=== PATIENT | female | born 1955 | race Caucasian/White ===

== ENCOUNTER → 2017-12-16 11:53 | Outpatient (CLI) | payer OTHER, SELFPAY ==
--- NOTE | 2017-12-16 11:53 | DT_ITS ---
This patient was seen during an EMR downtime December 15, 2017 - December 22, 2017. This patient may have a combination of paper and electronic documentation or all paper documentation. All documentation is viewable within the e-chart portion of [facility] for each patient visit.
[2017-12-22 17:12] LABS: ALB/GLOB Ratio 1.1 RATIO (0.9-2.4); AST(SGOT) 21 U/L (15-37); Albumin, Serum 4.2 g/dL (3.2-5.0); BUN 15 mg/dL (7-18); BUN/Creat Ratio 24.2 RATIO (10-20); Calcium,Total 9.3 mg/dL (8.5-10.1); Creatinine, Serum 0.62 mg/dL (0.55-1.02); EST Glomerular Filtration Rate 104 mL/min (>60); Est Glom Filt Rate - Afr Amer 126 mL/min (>60); Globulin 3.7 g/dL (2.2-4.2); Glucose 81 mg/dL (74-106); Protein, Total 7.9 g/dL (6.4-8.2)
[2017-12-22 17:13] LABS: Alanine Aminotransfer ALT/SGPT 24 U/L (13-56); Alkaline Phosphatase 79 U/L (45-117); Anion Gap 7 (5-15); Chloride 100 mmol/L (98-107); Potassium 3.6 mmol/L (3.5-5.1); Sodium Level 137 mmol/L (136-145)
== END ==
PROVIDERS: Family Provider Family Medicine; PCP Family Medicine; Visit Provider Internal Medicine Endocrinology, Diabetes & Metabolism
DX: M81.0 Age-related osteoporosis without current pathological fracture (principal); E11.9 Type 2 diabetes mellitus without complications
CPT/HCPCS: 36415; 80053; 82523

== ENCOUNTER → 2017-12-29 11:54 | Outpatient (CLI) | payer OTHER, SELFPAY ==
--- NOTE | 2017-12-29 11:58 | BI_ITS ---
MAMMOGRAPHY - UNILATERAL SCREENING: RIGHT BREAST REASON FOR EXAM: Female, 62 years old. Routine annual screening examination (unilateral). PERTINENT HISTORY: Personal history of breast cancer. Prior left mastectomy. TECHNIQUE: Digital unilateral breast kendall (3D mammographic acquisition) in the CC and MLO projections. 2-D mediolateral oblique (MLO) and craniocaudad (CC) views of both breasts were obtained. CAD: Full Field Digital Mammography with Computer Added Detection was performed. COMPARISON: Comparison is made with prior examination dated December 25, 2016 and December 25, 2015. FINDINGS: Breast Composition: The breasts are heterogeneously dense, which may obscure small masses. There are no dominant masses or suspicious calcifications. No other significant abnormalities are identified. There has been no significant change since the prior study. BI/UNILAT RT SCRN W/CAD IMPRESSION: Stable unilateral screening mammogram. Yearly follow-up mammogram recommended. (A) ASSESSMENT CATEGORY: BIRADS Category 1: Negative. A letter regarding these results will be sent to the patient by the facility within 30 days. Approximately 10% of breast cancers are not detected by mammography. A normal mammogram should not delay biopsy of a clinically suspicious abnormality. [id number] Electronically Signed: Elian Ronquillo MD at 11:41 EDT Tel [phone], Service support ,
== END ==
PROVIDERS: Family Provider Family Medicine; PCP Family Medicine; Visit Provider Obstetrics & Gynecology
DX: Z12.31 Encounter for screening mammogram for malignant neoplasm of breast (principal); Z85.3 Personal history of malignant neoplasm of breast; Z90.12 Acquired absence of left breast and nipple
CPT/HCPCS: 77061; 77067; G0279

== ENCOUNTER → 2018-05-15 18:25 | Outpatient (CLI) | payer OTHER, SELFPAY | PROVIDERS: Family Provider Family Medicine; PCP Family Medicine; Visit Provider Obstetrics & Gynecology | DX: N89.8 Other specified noninflammatory disorders of vagina (principal) | CPT/HCPCS: 87070; 87205 ==

== ENCOUNTER → 2018-06-23 07:18 | Outpatient (CLI) | payer OTHER, SELFPAY ==
[2018-05-15 10:09] VITALS: BMI 25.0
[2018-06-23 10:50] LABS: Absolute Lymphocyte Count 1.34 X10^3/ul (0.83-4.51); Absolute Neutrophil Count 3.1 X10^3/uL (2.0-7.7); Basophil# 0.04 X10^3/uL; Basophil% 0.8 % (0-1); Eosinophil# 0.17 X10^3/uL; Eosinophils% 3.3 % (0-5); Hematocrit 45.7 % (37-47); Hemoglobin 14.9 g/dl (12.0-15.0); Lymphocyte # 1.34 X10^3/ul (4.0); Lymphocyte % 25.9 % (19-41); Mean Corp Hgb Conc 32.6 g/gl (32-36); Mean Corpuscular Hgb 29.2 pg (27.0-32.0); Mean Corpuscular Volume 89.6 fL (81-99); Monocyte# 0.48 X10^3/uL; Monocyte% 9.3 % (0-10); Neutrophil # 3.14 X10^3/uL (2.7-7.7); Neutrophil % 60.5 % (47-70); POSITIVE COUNT NO; POSITIVE DIFFERENTIAL NO; POSITIVE MORPHOLOGY NO; Platelet Count 221 K/mm3 (150-450); RBC Distribution Width CV 12.9 % (11.6-14.6); RBC Distribution Width SD 41.8 fl (35.1-43.9); White Blood Count 5.2 K/mm3 (4.4-11.0)
[2018-06-23 11:05] LABS: AST(SGOT) 18 U/L (15-37); Alanine Aminotransfer ALT/SGPT 27 U/L (13-56); Albumin, Serum 3.8 g/dL (3.2-5.0); Alkaline Phosphatase 76 U/L (45-117); Anion Gap 7 (5-15); BUN 16 mg/dL (7-18); BUN/Creat Ratio 22.5 RATIO (10-20); Calcium,Total 8.6 mg/dL (8.5-10.1); Chloride 104 mmol/L (98-107); Cholesterol 213 mg/dL (200); Creatinine, Serum 0.71 mg/dL (0.55-1.02); EST Glomerular Filtration Rate 88 mL/min (>60); Est Glom Filt Rate - Afr Amer 107 mL/min (>60); Globulin 3.7 g/dL (2.2-4.2); Glucose 121 mg/dL (74-106); High Density Lipoprotein 65 mg/dL; Potassium 3.7 mmol/L (3.5-5.1); Protein, Total 7.5 g/dL (6.4-8.2); Sodium Level 140 mmol/L (136-145); Triglycerides 143 mg/dL; Very Low Density Lipoprotein 29 mg/dL (5-40)
[2018-06-23 11:12] LABS: Microalbumin,Random Urine 12.7 mg/L (NO RANGE EST.); Microalbumin:Creatinine Ratio 10.2 mg/g CRE (<30 mg/g CRE)
--- OUTSIDE RECORDS SUMMARY | 2018-08-09 05:35 | XMS RPT_ITS ---
:1955 Author Organization OHIP Care Team Providers Name Role Phone Samara Odonnell Attending Unavailable Samara Odonnell Referring Unavailable Scott Franco Primary Care Unavailable Terri Weinstein Attending Unavailable Scott Franco Primary Care Unavailable Terri Weinstein Attending Unavailable Scott Franco Referring Unavailable Terri Weinstein Attending Unavailable Scott Franco Primary Care Unavailable Samara Odonnell Attending Unavailable Samara Odonnell Referring Unavailable Scott Franco Primary Care Unavailable PROBLEMS PROBLEMS DATE TYPE CONDITION / CODE ATTENDING STATUS SOURCE 06/23/2018 Unknown E11.9 - Type 2 Korableva, Active Renetta diabetes mellitus [facility] without complications Hospital / E11.9(ICD-10) Repository 06/23/2018 Unknown E78.2 - Mixed Korableva, Active Renetta hyperlipidemia / [facility] E78.2(ICD-10) Hospital Repository 06/23/2018 Unknown D72.818 - Other Korableva, Active Renetta decreased white blood [facility] cell count / Hospital D72.818(ICD-10) Repository 05/15/2018 Unknown Z01.419 - Encounter Corinna, Active Fallon for gynecological [facility] examination (general) Hospital (routine) without Repository abnormal findings / Z01.419(ICD-10) 05/15/2018 Unknown N89.8 - Other Marcanthony, Active Renetta specified [facility] noninflammatory Hospital disorders of vagina / Repository N89.8(ICD-10) 01/07/2018 Unknown M81.0 - Age-related Korableva, Active Fallon osteoporosis without [facility] current pathological Hospital fracture / Repository M81.0(ICD-10) PROCEDURES PROCEDURES No Procedure Records FoundRESULTS RESULTS CBC W/DIFF, AUTOMATED Collected: 06/23/2018 Status: F Source: [place] 7:21 AM [facility] REPOSITORY TYPE CODE TESTS RESULT OUT OF RANGE REFERENCE UNITS LAB L100.1000 4.4-11.0 K/mm3 Normal WBC 5.2 LAB L100.1200 4.2-5.4 M/mm3 Normal RBC 5.10 LAB L100.1300 12.0-15.0 g/dl Normal HGB 14.9 LAB L100.1400 37-47 % Normal HCT 45.7 LAB L100.1500 81-99 fL Normal MCV 89.6 LAB L100.1600 27.0-32.0 pg Normal MCH 29.2 LAB L100.1700 32-36 g/gl Normal MCHC 32.6 LAB L100.1810 11.6-14.6 % Normal RDW CV 12.9 LAB L100.1820 35.1-43.9 fl Normal RDW SD 41.8 LAB L100.1900 150-450 K/mm3 Normal PLT 221 LAB L100.2000 6.2-12.0 fl Normal MPV 12.0 LAB L100.2100 47-70 % Normal NEUT% 60.5 LAB L100.2200 19-41 % Normal LY% 25.9 LAB L100.2300 0-10 % Normal MONO% 9.3 LAB L100.2400 0-5 % Normal EO% 3.3 LAB L100.2500 0-1 % Normal BASO% 0.8 LAB L100.2550 0.0-0.9 % Normal IM GRAN % 0.200 Result Comment: IG% - Immature Granulocytes (promyelocytes, myelocytes and metamyelocytes) > 1% indicates that a LEFT SHIFT is Present. LAB L100.2620 2.0-7.7 X10 3/uL Normal Absolute Neut 3.1 LAB L100.2720 0.83-4.51 X10 3/ul Normal Absolute Lymph 1.34 Performed By: #### L100.0100 #### [facility] [address] [place], [address] COMPREHENSIVE METABOLIC Collected: 06/23/2018 Status: F Source: [facility] 7:21 AM [facility] REPOSITORY TYPE CODE TESTS RESULT OUT OF RANGE REFERENCE UNITS LAB L501.0100 74-106 mg/dL High GLU 121 Result Comment: Fasting Glucose result from 100 to 125 mg/dL suggests IMPAIRED HOMEOSTASIS per A.D.A. criteria. Please note revised GLUCOSE reference range effective 2017. LAB L501.1000 7-18 mg/dL Normal BUN 16 LAB L501.1100 0.55-1.02 mg/dL Normal CREAT,SERUM 0.71 Result Comment: The validity of the calculated GFR AND GFRAA in patients over 70 years has not been determined. Clinical correlation is essential. LAB L501.1110 >60 mL/min Normal EST GFR 88 Result Comment: Non- GFR Calc LAB L501.1115 >60 mL/min Normal EST GFR - AA 107 Result Comment: GFR Calc LAB L501.1300 10-20 RATIO High BUN/CRE 22.5 LAB L501.1500 6.4-8.2 g/dL T Normal PROT 7.5 LAB L501.1800 3.2-5.0 g/dL Normal ALB 3.8 LAB L501.1950 2.2-4.2 g/dL Normal GLOB 3.7 LAB L501.2000 0.9-2.4 RATIO Normal A/G 1.0 LAB L501.2200 8.5-10.1 mg/dL CA Normal 8.6 LAB L501.4100 15-37 U/L Normal AST 18 LAB L501.4305 45-117 U/L Normal ALK P 76 LAB L501.4405 13-56 U/L Normal ALT 27 LAB L501.4600 0.20-1.00 mg/dL T Normal BILI 0.50 LAB L501.5300 136-145 mmol/L NA Normal 140 LAB L501.5600 3.5-5.1 mmol/L K Normal 3.7 LAB L501.5900 98-107 mmol/L CL Normal 104 LAB L501.6100 21.0-32.0 mmol/L Normal CO2 29.0 LAB L501.6200 5-15 Normal GAP 7 Performed By: #### L500.4050, L500.4100 #### [facility] [address] [place], [place], [address] LIPID PROFILE Collected: 06/23/2018 Status: F Source: [place] 7:21 AM [facility] REPOSITORY TYPE CODE TESTS RESULT OUT OF RANGE REFERENCE UNITS LAB L501.4900 200 mg/dL High CHOL 213 Result Comment: <200 mg/dL Desirable 200-240 mg/dL Borderline >240 mg/dL High Risk LAB L501.5000 mg/dL Normal TRIG 143 Result Comment: The drugs N-Acetylcysteine and Metamizole may falsely depress this assay. Serum Triglycerides Reference Interval Normal <150 mg/dL Borderline high 150 - 199 mg/dL High 200 - 499 mg/dL Very High > or = 500 mg/dL LAB L501.6400 mg/dL Normal HDL 65 Result Comment: The drugs N-Acetylcysteine and Metamizole may falsely depress this assay. Reference Range HDL <40 mg/dL Low HDL Cholesterol HDL >or= 60 mg/dL High HDL Cholesterol LAB L501.6500 0-130 mg/dL Normal LDL 119 LAB L501.6600 5-40 mg/dL Normal VLDL 29 Performed By: #### L500.4050, L500.4100 #### [facility] [address] [place], [place], [address] MICROALB:CREAT Collected: 06/23/2018 Status: F Source: [place] RATIO,RANDOM UR 7:21 AM [facility] REPOSITORY TYPE CODE TESTS RESULT OUT OF RANGE REFERENCE UNITS LAB L501.1200 NO RANGE EST. mg/dL Normal UR CREAT 124.00 LAB L502.0500 NO RANGE EST. mg/L Normal 12.7 MICROALBUMIN ,UR LAB L502.0600 <30 mg/g CRE mg/g CRE Normal 10.2 MALB:CREAT Performed By: #### L502.0250 #### [facility] [address] [place], [address] Observed: 05/15/2018 Status: F Source: [place] CULTURE, GENITAL 6:25 PM [facility] COMPREHENSIVE REPOSITORY Reason for Exam: vaginal discharge Gram Stain Score = 4 Interpretation: 0-3 Normal, 4-6 Intermediate, 7-10 Positive BV Gram Stain No Gram positive rods 1+ White Blood Cells No Gram negative diplococci No Yeast Like Organisms Gent Cult Comp Normal vaginal zev isolated. No yeast, Gardnerella, Neisseria or beta-hemolytic Streptococcus isolated. Performed By: #### M100.1600 #### [facility] [address] [place], [place], [address] [employer]ARDEN [employer]LE[employer] MECH[employer]IC OFFICE VISIT Observed: 05/15/2018 Status: F Source: [place] REPORT 11:11 AM [facility] REPOSITORY [facility] [address] [place] [address] OFFICE VISIT Date of Service: 05/15/18 MR#: [id number] Acct: [id number] Name: RADHA JEROME Rep #: [id number] : 1955 Provider: Terri Weinstein MD Age/Sex: 63/F Location: 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 Is patient in pain?: No Allergies No Known Allergies Allergy (Verified 05/15/18 10:10) Medications Hydrochlorothiazide [Hctz] 25 mg PO DAILY 12/06/16 [History Confirmed 05/15/18] Potassium Chloride [Klor-Con M20] 20 meq PO DAILY 12/06/16 [History Confirmed 05/15/18] Cholecalciferol (Vitamin D3) [Vitamin D3] 2,000 unit PO DAILY 01/02/17 [History Confirmed 05/15/18] Ibandronate Sodium [Boniva] 150 mg PO Q30D 01/02/17 [History Confirmed 05/15/18] Is last menstrual period known: No Patient : No : No PFSH Medical History Hypercalcemia (Acute) Hypokalemia (Acute) Osteoporosis (Chronic) Diabetes (Acute) Surgical History H/O tubal ligation (Resolved) S/P appendectomy (Resolved) S/P left mastectomy (Resolved) Family History Mother Diabetes CVA (cerebral vascular accident) Father Diabetes Myocardial infarction Sister Diabetes Pancreatic cancer Social History Smoking Status: Former smoker alcohol intake: never substance use type: does not use caffeine: Yes what type of physical activity do you participate in: walking frequency: 3-4 times per week seatbelt use: always do you feel safe at home: Yes additional social history: - 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 DateName GA/Weeks Outcome Route Bth WeighInfant GeLabor LgtAnesthesiDel LocatProvider FOB t n h a n HPI ANNUAL EXAM: Details: RADHA JEROME is a 63 year old who presents for annual exam. Last PAP: 2016 normal History of abnormal PAP: no Last mammogram: here History of abnormal mammogram: breast cancer 1996 Colon cancer screening: up to date Other preventative health care screenings: pcp rayne Female Reproductive History Questions: Sexually active: No ROS Const Constitutional: Reports as per HPI; denies poor appetite, fatigue, increased appetite, weight gain or weight loss Cardio Card: Denies chest pain Resp Resp: Denies dyspnea or cough GI GI: Reports as per HPI; denies bloating, abdominal pain, constipation, vomiting or nausea : Reports as per HPI, other and vaginal discharge (clear discharge); denies blood in urine, vaginal odor, vaginal itching, vaginal dryness, urinary urgency, urinary incontinence, urinary frequency, pelvic pain, painful urination, difficulty urinating, prolapse symptoms or nipple discharge Skin Skin/Breast: Denies breast pain, breast skin changes, nipple discharge, breast lump or changing lesions Exam Const General: cooperative, healthy appearing, comfortable, no acute distress, well developed, well groomed [facility] Head: normal to inspection, normocephalic Ears: hearing grossly normal bilaterally, external ears normal Nose: external nose normal Face and sinus: normal facial exam Neck Neck: normal visual inspection, full ROM, no lymphadenopathy Thyroid: thyroid normal Chest Chest palpation AND inspection: normal inspection of the chest Breast inspection: normal inspection of the axillae, abnormal inspection of the breast (left breast absent) Breast palpation: normal palpation of the breasts, normal palpation of the axillae, no axillary lymphadenopathy Resp Effort AND Inspection: normal respiratory effort GI Inspection: normal to inspection, non-distended Palpation: no guarding, soft, no hepatosplenomegaly General: bladder normal to palpation External Female Exam: normal external appearance, normal appearance of the urethra, no lesions Urethra: normal appearance of the urethra, normal palpation Speculum Exam - Vagina: normal appearance of the vagina, normal vaginal discharge Speculum Exam - Cervix: normal appearance of the cervix, no cervical discharge, no lesions, nontender Bimanual Exam- Vagina AND Uterus: No cervical tenderness, normal bimanual exam, uterine size normal, bladder normal to palpation, uterine mobility normal, uterine consistency normal, uterus non-tender, no cervical motion tenderness Bimanual Exam- Adnexa, other: normal adnexae, no adnexal masses, adnexae non-tender Skin General: no rashes or lesions noted Neuro General: alert, moves all extremities, no focal motor deficits Extrem General: no pedal edema, normal to inspection Psych Appearance: grossly normal Mental Status: mental status grossly normal Affect: normal affect Speech and Movement: speech and movement normal Attitude: cooperative Assessment AND Plan Problems 1. Encounter for gynecological examination without abnormal finding Z01.419 Plan Cervical cancer screening: pap hpv 2016 Breast cancer screening: mamm other health maintenance examination reviewed and orders placed if needed. Encouraged maintenance of a healthy weight and active lifestyle and handout given. Annual exam handout including recommendations for good health guidelines, Calcium/vitamin D recommendations, and basic screening information given. Problem list up to date, see problem list details for any additional plan information. Follow up in one year for annual health maintenance exam or sooner if needed. Coding Level of Care Code Off vis,est,prev 40-64yrs Diagnoses Encounter for gynecological examination without abnormal finding Z01.419 Gynecological examination findings: abnormal findings ABSENT 05/15/18 1111 <Electronically signed by Terri Weinstein MD> Date Terri Weinstein MD Cosigner Signature: Date (if applicable) CC: DOWNTIME REPORT Observed: 01/01/2018 Status: F Source: [place] 2:08 PM [facility] Medical Records Department [address] [place] [address] Downtime Report MR#: [id number] Acct: [id number] Name: RADHA JEROME Rep #: [id number] : 1955 62 From: Edson Fang PCP: Scott Franco MD Status: REG CLI This patient was seen during an EMR downtime December 15, 2017 - December 22, 2017. This patient may have a combination of paper and electronic documentation or all paper documentation. All documentation is viewable within the e-chart portion of [email or web address]) for each patient visit. UNILAT RT SCRN Observed: 12/29/2017 Status: F Source: [place] W/CAD 11:59 AM [facility] REPOSITORY [facility] Imaging Services [address] [place] [address] UNILAT RT SCRN W/CAD MR#: [id number] Acct: [id number] Name: RADHA JEROME Willie Rep #: [id number] : 1955 F 62 From: Elian Ronquillo MD PCP: Scott Franco MD Status: REG CLI Study: UNILAT RT SCRN W/CAD Date of Exam: 12/29/17 Exam# [id number] Ordering Dr: Terri Weinstein MD MAMMOGRAPHY - UNILATERAL SCREENING: RIGHT BREAST REASON FOR EXAM: Female, 62 years old. Routine annual screening examination (unilateral). PERTINENT HISTORY: Personal history of breast cancer. Prior left mastectomy. TECHNIQUE: Digital unilateral breast kendall (3D mammographic acquisition) in the CC and MLO projections. 2-D mediolateral oblique (MLO) and craniocaudad (CC) views of both breasts were obtained. CAD: Full Field Digital Mammography with Computer Added Detection was performed. COMPARISON: Comparison is made with prior examination dated December 25, 2016 and December 25, 2015. FINDINGS: Breast Composition: The breasts are heterogeneously dense, which may obscure small masses. There are no dominant masses or suspicious calcifications. No other significant abnormalities are identified. There has been no significant change since the prior study. BI/UNILAT RT SCRN W/CAD IMPRESSION: Stable unilateral screening mammogram. Yearly follow-up mammogram recommended. (A) ASSESSMENT CATEGORY: BIRADS Category 1: Negative. A letter regarding these results will be sent to the patient by the facility within 30 days. Approximately 10% of breast cancers are not detected by mammography. A normal mammogram should not delay biopsy of a clinically suspicious abnormality. [id number] Electronically Signed: Elian Ronquillo MD at 11:41 EDT Tel [phone], Service support , CC: Scott Franco MD; Terri Weinstein MD Package Center Supervisor: Signed N-TELOPEPTIDE,UR X LINK Collected: 12/16/2017 Status: F Source: [place] 12:09 PM [facility] REPOSITORY TYPE CODE TESTS RESULT OUT OF RANGE REFERENCE UNITS LAB L3620.0200 Normal N-TELOPEPTID E Result Comment: TEST RESULT UNITS REFERENCE INTERVAL N-Telopeptide, Urine N-telopeptide 25 nmol BCE Not Estab. Creatinine, Urine 17.5 mg/dL Not Estab. N-telo/Creat. Ratio 16 nM BCE/mM Cr 0 - 89 Interpretive Guide: The N-telopeptide and Creatinine are used to calculate the N-telo/Creat. Ratio which is referred to as NTx. Suggested guidelines for the clinical use of NTx are as follows: 1. Menopausal Women not on Hormone Replacement Therapy (HRT): Women with a baseline NTx value >38 are at significant risk for a decrease in bone mineral density (BMD) after 1 year compared to women on HRT. The probability of a decline in BMD increases with NTx value as follows: (1): Baseline NTx Probability of Decrease in BMD 18- 38 1.4 p=0.28 38- 51 2.5 p=0.03 51- 67 3.8 p=0.0006 67-188 17.3 p=0.0001 2. Menopausal Women Receiving Antiresorptive Therapy: The probability that treatment is effective after three months is increased when the measured NTx value is <or=38 nM BCE/mM MISSION ANALYST, or NTx has decreased >or=30% from baseline.[1] 3. Patients with Paget's Disease of Bone: The probability that treatment is effective after one month is increased when the measured NTx value is within the reference range, or NTx has decreased >or=30% from baseline.[2] 1. Gurmeet CH, Cecily NH, Yash GS, et al. Am J Med, 102:29-37,1996. (1):M757, 1996. 2. Bone H, Hank J, et al. J Bone Min Res.11(1):M757,1996 For inquiries, the physician may contact Branch: [phone] Lab: [phone] TESTING PERFORMED AT [facility]. ORIGINAL REPORT ON FILE IN LAB CONTAINS ADDITIONAL TEST SITE INFORMATION. Performed By: #### L3620.0100 #### [facility] (refer to report for specific site) refer to report for address and phone number COMPREHENSIVE METABOLIC Collected: 12/16/2017 Status: F Source: [place] SALES 12:09 PM [facility] REPOSITORY Order Comment: RESULT(S) PREVIOUSLY REPORTED ON MANUAL REQUISITION DURING DOWNTIME. TYPE CODE TESTS RESULT OUT OF RANGE REFERENCE UNITS LAB L501.0100 74-106 mg/dL Normal GLU 81 Result Comment: Please note revised GLUCOSE reference range effective 2017. LAB L501.1000 7-18 mg/dL Normal BUN 15 LAB L501.1100 0.55-1.02 mg/dL Normal CREAT,SERUM 0.62 Result Comment: The validity of the calculated GFR AND GFRAA in patients over 70 years has not been determined. Clinical correlation is essential. LAB L501.1110 >60 mL/min Normal EST GFR 104 LAB L501.1115 >60 mL/min Normal EST GFR - AA 126 LAB L501.1300 10-20 RATIO High BUN/CRE 24.2 LAB L501.1500 6.4-8.2 g/dL Normal T PROT 7.9 LAB L501.1800 3.2-5.0 g/dL Normal ALB 4.2 LAB L501.1950 2.2-4.2 g/dL Normal GLOB 3.7 LAB L501.2000 0.9-2.4 RATIO Normal A/G 1.1 LAB L501.2200 8.5-10.1 mg/dL Normal CA 9.3 LAB L501.4100 15-37 U/L Normal AST 21 LAB L501.4305 45-117 U/L Normal ALK P 79 LAB L501.4405 13-56 U/L Normal ALT 24 LAB L501.4600 0.20-1.00 mg/dL Normal T BILI 0.30 LAB L501.5300 136-145 mmol/L Normal NA 137 LAB L501.5600 3.5-5.1 mmol/L Normal K 3.6 LAB L501.5900 98-107 mmol/L Normal CL 100 LAB L501.6100 21.0-32.0 mmol/L Normal CO2 30.0 LAB L501.6200 5-15 Normal GAP 7 Performed By: #### L500.4050 #### [facility] [address] [place], [address] ALLERGIES ALLERGIES DATE TYPE / CODE NAME / CODE REACTION SEVERITY SOURCE 05/15/2018 Drug No Known Unknown [facility] Allergy/4160 Allergies/F00 Hospital 34202(SNOMED 7041785(RXNOR Repository CT) M) ENCOUNTERS ENCOUNTERS ADMIT/DISCHARGE ACCOUNT ADMITTING ENCOUNTER LOCATION SOURCE NUMBER CLASS 06/23/2018 [id number] Ambulatory Fallon Fallon 2 [facility] ing:MTLAB Repository 05/15/2018 [id number] Ambulatory Renetta Fallon 4 [facility] ing:LAB Repository 05/15/2018/ [id number] Ambulatory BMSBuilding:B Renetta 8 2 [facility] Repository 12/29/2017 [id number] Ambulatory Fallon Fallon 5 [facility] ing:OPBI Repository 12/16/2017 [id number] Ambulatory Renetta Renetta 2 [facility] ing:MTLAB Repository PAYERS PAYERS ENCOUNTER GUARANTOR PAYER SUBSCRIBER SOURCE 06/23/2018 FABIENNE [id number] Primary RADHA JEROMEDOB: Renetta BLAEVELYNE Insurance[id number] [address]Xry: (330) Number: Repository [phone] () [id number] Date:[id number] [address] [address]RI: 06/23/2018 Secondary NOT GIVENUNK Fallon Insurance:SELF PAY [facility] Number: Effective Repository Date:2018-06-23 05/15/2018 Fabienne [id number] Primary RADHA LUONGB: [place] Insurance:MEDICAL [id number] [address]Ygr: (330) Number: Repository [phone] () [id number] Date:[id number] [address] [place] [phone]: 05/15/2018 Secondary NOT GIVENUNK Renetta Insurance:SELF PAY [facility] Number: Effective Repository Date:2018-05-15 05/15/2018 Fabienne [id number] Primary RADHA JEROMEDOB: [place] Insurance:MEDICAL [id number] [address]Ggd: (330) Number: Repository [phone] () [id number] Date:[id number] [address] [place] [phone]: 05/15/2018 Secondary NOT GIVENUNK Renetta Insurance:SELF PAY [facility] Number: Effective Repository Date:2018-03-09 12/29/2017 Fabienne [id number] Primary RADHA JEROMEDOB: [place]etta [place] Insurance:MEDICAL [id number] [id number]: (330) Number: Repository [phone] () [id number] Date:[id number] [address] [place] [phone]: 12/29/2017 Secondary NOT GIVENUNK Renetta Insurance:SELF PAY [facility] Number: Effective Repository Date:2017-10-21 12/16/2017 Fabienne [id number] Primary RADHA LUONGB: [place]etta [place] Insurance:MEDICAL [id number] [address]Him: (330) Number: Repository [phone] () [id number] Date:[id number] [address] [place] [phone]: 12/16/2017 Secondary NOT GIVENUNK Renetta Insurance:SELF PAY [facility] Number: Effective Repository Date:2017-12-16
== END ==
PROVIDERS: Family Provider Family Medicine; PCP Family Medicine; Referring Provider Internal Medicine Endocrinology, Diabetes & Metabolism; Visit Provider Internal Medicine Endocrinology, Diabetes & Metabolism
DX: E11.9 Type 2 diabetes mellitus without complications (principal); E78.2 Mixed hyperlipidemia; D72.818 Other decreased white blood cell count
CPT/HCPCS: 36415; 80053; 80061; 82043; 82570; 85025

== ENCOUNTER → 2018-12-23 11:52 | Outpatient (CLI) | payer OTHER, SELFPAY ==
[2018-05-15 10:09] VITALS: BMI 25.0
[2018-12-23 14:30] LABS: AST(SGOT) 17 U/L (15-37); Alanine Aminotransfer ALT/SGPT 26 U/L (13-56); Albumin, Serum 3.9 g/dL (3.2-5.0); Alkaline Phosphatase 80 U/L (45-117); Anion Gap 9 (5-15); BUN 16 mg/dL (7-18); BUN/Creat Ratio 26.1 RATIO (10-20); Calcium,Total 9.9 mg/dL (8.5-10.1); Chloride 101 mmol/L (98-107); Creatinine, Serum 0.61 mg/dL (0.55-1.02); EST Glomerular Filtration Rate 105 mL/min (>60); Est Glom Filt Rate - Afr Amer 127 mL/min (>60); Glucose 79 mg/dL (74-106); Potassium 3.5 mmol/L (3.5-5.1); Protein, Total 7.9 g/dL (6.4-8.2); Sodium Level 141 mmol/L (136-145)
== END ==
PROVIDERS: Family Provider Family Medicine; PCP Family Medicine; Referring Provider Internal Medicine Endocrinology, Diabetes & Metabolism; Visit Provider Internal Medicine Endocrinology, Diabetes & Metabolism
DX: E11.9 Type 2 diabetes mellitus without complications (principal)
CPT/HCPCS: 36415; 80053; 82248

== ENCOUNTER → 2018-12-30 12:08 | Outpatient (CLI) | payer OTHER, SELFPAY ==
[2018-05-15 10:09] VITALS: BMI 25.0
--- NOTE | 2018-12-30 12:10 | BI_ITS ---
MAMMOGRAPHY - UNILATERAL SCREENING: RIGHT BREAST REASON FOR EXAM: Female, 63 years old. Routine annual screening examination (unilateral). PERTINENT HISTORY: Personal history of breast cancer. Prior left mastectomy. TECHNIQUE: Digital unilateral breast dom (3D mammographic acquisition) in the CC and MLO projections. 2-D mediolateral oblique (MLO) and craniocaudad (CC) views of both breasts were obtained. CAD: Full Field Digital Mammography with Computer Added Detection was performed. COMPARISON: Comparison is made with prior study dated December 29, 2017 and December 25, 2016. FINDINGS: Breast Composition: The breasts are heterogeneously dense, which may obscure small masses. There are no dominant masses or suspicious calcifications. No other significant abnormalities are identified. There has been no significant change since the prior study. BI/SCREEN MAMM (CAD) W/DOM UNI R IMPRESSION: Stable unilateral screening mammogram. Yearly follow-up mammogram recommended. (A) ASSESSMENT CATEGORY: BIRADS Category 1: Negative. A letter regarding these results will be sent to the patient by the facility within 30 days. Approximately 10% of breast cancers are not detected by mammography. A normal mammogram should not delay biopsy of a clinically suspicious abnormality. [id number] Electronically Signed: Elian Ronquillo, at 14:39 EDT , Service support ,
== END ==
PROVIDERS: Family Provider Family Medicine; PCP Family Medicine; Referring Provider Obstetrics & Gynecology; Visit Provider Obstetrics & Gynecology
DX: Z12.31 Encounter for screening mammogram for malignant neoplasm of breast (principal)
CPT/HCPCS: 77061; 77063; 77067; G0279

== ENCOUNTER → 2019-06-04 12:44 | Outpatient (CLI) | payer OTHER, SELFPAY ==
[2019-06-04 09:12] VITALS: BMI 25.0
[2019-06-09 12:32] LABS: HPV APTIMA, High Risk Negative (Negative)
== END ==
PROVIDERS: Family Provider Family Medicine; PCP Family Medicine; Visit Provider Obstetrics & Gynecology
DX: Z12.4 Encounter for screening for malignant neoplasm of cervix (principal)
CPT/HCPCS: 87624; 88175; G0145

== ENCOUNTER → 2019-07-01 07:26 | Outpatient (CLI) | payer OTHER, SELFPAY ==
[2019-06-04 09:12] VITALS: BMI 25.0
[2019-07-01 10:27] LABS: Absolute Neutrophil Count 2.9 X10^3/uL (2.0-7.7); Basophil# 0.07 X10^3/uL; Basophil% 1.4 % (0-1); Eosinophil# 0.21 X10^3/uL; Eosinophils% 4.3 % (0-5); Hematocrit 47.2 % (37-47); Hemoglobin 15.1 g/dL (12.0-15.0); Lymphocyte % 24.6 % (19-41); Mean Corpuscular Hgb 29.1 pg (27.0-32.0); Mean Corpuscular Volume 90.9 fL (81-99); Mean Platelet Vol. 11.7 fl (6.2-12.0); Monocyte% 10.3 % (0-10); NRBC Flagged by Analyzer 0 % (0-5); Neutrophil # 2.88 X10^3/uL (2.7-7.7); Neutrophil % 59.2 % (47-70); Platelet Count 229 K/mm3 (150-450); RBC Distribution Width CV 12.4 % (11.6-14.6); Red Blood Count 5.19 M/mm3 (4.2-5.4); White Blood Count 4.9 K/mm3 (4.4-11.0)
[2019-07-01 10:57] LABS: AST(SGOT) 19 U/L (15-37); Alanine Aminotransfer ALT/SGPT 29 U/L (13-56); Albumin, Serum 3.9 g/dL (3.2-5.0); Alkaline Phosphatase 75 U/L (45-117); Anion Gap 5 (5-15); BUN 15 mg/dL (7-18); BUN/Creat Ratio 20.8 RATIO (10-20); Calcium,Total 9.1 mg/dL (8.5-10.1); Chloride 106 mmol/L (98-107); Cholesterol 197 mg/dL (200); Creatinine, Serum 0.72 mg/dL (0.55-1.02); EST Glomerular Filtration Rate 86 mL/min (>60); Est Glom Filt Rate - Afr Amer 105 mL/min (>60); Globulin 3.8 g/dL (2.2-4.2); Glucose 117 mg/dL (74-106); High Density Lipoprotein 73 mg/dL; Potassium 3.5 mmol/L (3.5-5.1); Protein, Total 7.7 g/dL (6.4-8.2); Sodium Level 141 mmol/L (136-145); Triglycerides 133 mg/dL; Very Low Density Lipoprotein 27 mg/dL (5-40)
[2019-07-01 12:58] LABS: Microalbumin,Random Urine 12.8 mg/L (NO RANGE EST.); Microalbumin:Creatinine Ratio 11.4 mg/g CRE (<30 mg/g CRE)
== END ==
PROVIDERS: Family Provider Family Medicine; PCP Family Medicine; Referring Provider Internal Medicine Endocrinology, Diabetes & Metabolism; Visit Provider Internal Medicine Endocrinology, Diabetes & Metabolism
DX: E11.9 Type 2 diabetes mellitus without complications (principal); E78.00 Pure hypercholesterolemia, unspecified
CPT/HCPCS: 36415; 80053; 80061; 82043; 82570; 85025

== ENCOUNTER → 2020-01-17 09:50 | Outpatient (CLI) | payer MEDICARE, OTHER, SELFPAY ==
[2019-06-04 09:12] VITALS: BMI 25.0
--- NOTE | 2020-01-17 09:51 | BI_ITS ---
MAMMOGRAPHY - UNILATERAL SCREENING: RIGHT BREAST REASON FOR EXAM: Female, 64 years old. Routine annual screening examination (unilateral). PERTINENT HISTORY: Personal history of breast cancer. Prior left mastectomy. TECHNIQUE: Digital unilateral breast dom (3D mammographic acquisition) in the CC and MLO projections. 2-D mediolateral oblique (MLO) and craniocaudad (CC) views of both breasts were obtained. CAD: Full Field Digital Mammography with Computer Added Detection was performed. COMPARISON: Comparison is made with prior examination dated December 30, 2018 and December 29, 2017. FINDINGS: Breast Composition: The breasts are heterogeneously dense, which may obscure small masses. There are no dominant masses or suspicious calcifications. No other significant abnormalities are identified. There has been no significant change since the prior study. BI/SCREEN MAMM (CAD) W/DOM UNI R IMPRESSION: Stable unilateral screening mammogram. Yearly follow-up mammogram recommended. (A) ASSESSMENT CATEGORY: BIRADS Category 1: Negative. A letter regarding these results will be sent to the patient by the facility within 30 days. Approximately 10% of breast cancers are not detected by mammography. A normal mammogram should not delay biopsy of a clinically suspicious abnormality. [id number] Electronically Signed: Elian Ronquillo, at 12:36 EDT , Service support ,
== END ==
PROVIDERS: PCP Family Medicine; Referring Provider Obstetrics & Gynecology; Visit Provider Obstetrics & Gynecology
DX: Z12.31 Encounter for screening mammogram for malignant neoplasm of breast (principal); Z85.3 Personal history of malignant neoplasm of breast
CPT/HCPCS: 77063; 77067

== ENCOUNTER → 2020-01-27 09:59 | Outpatient (CLI) | payer MEDICARE, SELFPAY ==
[2019-06-04 09:12] VITALS: BMI 25.0
[2020-01-27 13:18] LABS: ALB/GLOB Ratio 1.1 RATIO (0.9-2.4); AST(SGOT) 17 U/L (15-37); Alanine Aminotransfer ALT/SGPT 25 U/L (13-56); Albumin, Serum 3.9 g/dL (3.2-5.0); Alkaline Phosphatase 75 U/L (45-117); Anion Gap 6 (5-15); BUN 13 mg/dL (7-18); BUN/Creat Ratio 19.1 RATIO (10-20); Calcium,Total 9.5 mg/dL (8.5-10.1); Chloride 105 mmol/L (98-107); Creatinine, Serum 0.68 mg/dL (0.55-1.02); EST Glomerular Filtration Rate 92 mL/min (>60); Est Glom Filt Rate - Afr Amer 112 mL/min (>60); Globulin 3.5 g/dL (2.2-4.2); Glucose 150 mg/dL (74-106); Potassium 3.6 mmol/L (3.5-5.1); Protein, Total 7.4 g/dL (6.4-8.2); Sodium Level 139 mmol/L (136-145)
[2020-01-27 13:29] LABS: Microalbumin,Random Urine 12.7 mg/L (NO RANGE EST.); Microalbumin:Creatinine Ratio 11.8 mg/g CRE (<30 mg/g CRE)
== END ==
PROVIDERS: PCP Family Medicine; Referring Provider Internal Medicine Endocrinology, Diabetes & Metabolism; Visit Provider Internal Medicine Endocrinology, Diabetes & Metabolism
DX: E11.9 Type 2 diabetes mellitus without complications (principal); E55.9 Vitamin D deficiency, unspecified
CPT/HCPCS: 36415; 80053; 82043; 82306; 82570

== ENCOUNTER → 2020-06-26 07:04 | Outpatient (CLI) | payer MEDICARE, OTHER, SELFPAY ==
[2020-06-12 10:27] VITALS: BMI 23.7
[2020-06-26 10:12] LABS: ALB/GLOB Ratio 1.1 RATIO (0.9-2.4); AST(SGOT) 13 U/L (15-37); Alanine Aminotransfer ALT/SGPT 26 U/L (13-56); Albumin, Serum 3.8 g/dL (3.2-5.0); Alkaline Phosphatase 81 U/L (45-117); Anion Gap 3 (5-15); BUN 18 mg/dL (7-18); BUN/Creat Ratio 28.2 RATIO (10-20); Calcium,Total 9.1 mg/dL (8.5-10.1); Chloride 106 mmol/L (98-107); Cholesterol 210 mg/dL (200); Creatinine, Serum 0.64 mg/dL (0.55-1.02); EST Glomerular Filtration Rate 99 mL/min (>60); Est Glom Filt Rate - Afr Amer 120 mL/min (>60); Globulin 3.6 g/dL (2.2-4.2); Glucose 100 mg/dL (74-106); High Density Lipoprotein 67 mg/dL; Potassium 3.5 mmol/L (3.5-5.1); Protein, Total 7.4 g/dL (6.4-8.2); Sodium Level 140 mmol/L (136-145); Thyroid Stim Hormone (TSH) 1.83 uIU/mL (0.358-3.74); Triglycerides 154 mg/dL; Very Low Density Lipoprotein 31 mg/dL (5-40)
== END ==
PROVIDERS: PCP Family Medicine; Referring Provider Internal Medicine Endocrinology, Diabetes & Metabolism; Visit Provider Internal Medicine Endocrinology, Diabetes & Metabolism
DX: E11.9 Type 2 diabetes mellitus without complications (principal); E78.00 Pure hypercholesterolemia, unspecified; E04.9 Nontoxic goiter, unspecified
CPT/HCPCS: 36415; 80053; 80061; 84443

== ENCOUNTER → 2020-12-26 07:16 | Outpatient (CLI) | payer MEDICARE, OTHER, SELFPAY ==
[2020-06-12 10:27] VITALS: BMI 23.7
[2020-12-26 10:44] LABS: Microalbumin,Random Urine 5.6 mg/L (NO RANGE EST.); Microalbumin:Creatinine Ratio 11.3 mg/g CRE (<30 mg/g CRE)
[2020-12-26 10:49] LABS: ALB/GLOB Ratio 1.1 RATIO (0.9-2.4); AST(SGOT) 17 U/L (15-37); Alanine Aminotransfer ALT/SGPT 24 U/L (13-56); Albumin, Serum 3.7 g/dL (3.2-5.0); Alkaline Phosphatase 81 U/L (45-117); Anion Gap 6 (5-15); BUN 12 mg/dL (7-18); BUN/Creat Ratio 17.6 RATIO (10-20); Calcium,Total 9.1 mg/dL (8.5-10.1); Chloride 102 mmol/L (98-107); Cholesterol 196 mg/dL (200); Creatinine, Serum 0.68 mg/dL (0.55-1.02); EST Glomerular Filtration Rate 92 mL/min (>60); Est Glom Filt Rate - Afr Amer 111 mL/min (>60); Globulin 3.5 g/dL (2.2-4.2); Glucose 97 mg/dL (74-106); High Density Lipoprotein 69 mg/dL; Potassium 3.7 mmol/L (3.5-5.1); Protein, Total 7.2 g/dL (6.4-8.2); Sodium Level 138 mmol/L (136-145); Triglycerides 121 mg/dL; Very Low Density Lipoprotein 24 mg/dL (5-40)
== END ==
PROVIDERS: PCP Family Medicine; Referring Provider Internal Medicine Endocrinology, Diabetes & Metabolism; Visit Provider Internal Medicine Endocrinology, Diabetes & Metabolism
DX: E11.9 Type 2 diabetes mellitus without complications (principal); E78.00 Pure hypercholesterolemia, unspecified; M81.0 Age-related osteoporosis without current pathological fracture
CPT/HCPCS: 36415; 80053; 80061; 82043; 82523; 82570

== ENCOUNTER → 2021-01-17 09:53 | Outpatient (CLI) | payer MEDICARE, OTHER, SELFPAY ==
[2020-06-12 10:27] VITALS: BMI 23.7
--- NOTE | 2021-01-17 09:56 | BI_ITS ---
MAMMOGRAPHY - UNILATERAL SCREENING: RIGHT BREAST REASON FOR EXAM: Female, 65 years old. Routine annual screening examination (unilateral). PERTINENT HISTORY: Personal history of breast cancer. Prior left mastectomy. TECHNIQUE: Digital unilateral breast dom (3D mammographic acquisition) in the CC and MLO projections. 2-D mediolateral oblique (MLO) and craniocaudad (CC) views of both breasts were obtained. CAD: Full Field Digital Mammography with Computer Added Detection was performed. COMPARISON: Comparison is made with prior study dated 01/17/2020 and 12/30/2018 FINDINGS: Breast Composition: The breasts are heterogeneously dense, which may obscure small masses. There are no dominant masses or suspicious calcifications. No other significant abnormalities are identified. There has been no significant change since the prior study. BI/SCREEN MAMM (CAD) W/DOM UNI R IMPRESSION: Stable unilateral screening mammogram. Yearly follow-up mammogram recommended. (A) ASSESSMENT CATEGORY: BIRADS Category 1: Negative. A letter regarding these results will be sent to the patient by the facility within 30 days. Approximately 10% of breast cancers are not detected by mammography. A normal mammogram should not delay biopsy of a clinically suspicious abnormality. [id number] Electronically Signed: Elian Ronquillo MD at 11:02 EDT , Service support ,
== END ==
PROVIDERS: PCP Family Medicine; Referring Provider Obstetrics & Gynecology; Visit Provider Obstetrics & Gynecology
DX: Z12.31 Encounter for screening mammogram for malignant neoplasm of breast (principal); Z85.3 Personal history of malignant neoplasm of breast; Z90.12 Acquired absence of left breast and nipple
CPT/HCPCS: 77063; 77067

== ENCOUNTER → 2021-07-04 10:36 | Outpatient (CLI) | payer MEDICARE, OTHER, SELFPAY ==
[2021-07-04 12:35] LABS: Vitamin D,25 Hydroxy 58.8 ng/mL
[2021-07-04 12:50] LABS: ALB/GLOB Ratio 0.9 RATIO (0.9-2.4); AST(SGOT) 17 U/L (15-37); Alanine Aminotransfer ALT/SGPT 29 U/L (13-56); Albumin, Serum 3.7 g/dL (3.2-5.0); Alkaline Phosphatase 75 U/L (45-117); Anion Gap 10 (5-15); BUN 14 mg/dL (7-18); BUN/Creat Ratio 19.1 RATIO (10-20); Calcium,Total 9.4 mg/dL (8.5-10.1); Chloride 101 mmol/L (98-107); Creatinine, Serum 0.73 mg/dL (0.55-1.02); EST Glomerular Filtration Rate 84 mL/min (>60); Est Glom Filt Rate - Afr Amer 102 mL/min (>60); Globulin 3.9 g/dL (2.2-4.2); Glucose 159 mg/dL (74-106); Potassium 3.4 mmol/L (3.5-5.1); Protein, Total 7.6 g/dL (6.4-8.2); Sodium Level 140 mmol/L (136-145); Thyroid Stim Hormone (TSH) 1.44 uIU/mL (0.358-3.74)
== END ==
PROVIDERS: PCP Family Medicine; Referring Provider Internal Medicine Endocrinology, Diabetes & Metabolism; Visit Provider Internal Medicine Endocrinology, Diabetes & Metabolism
DX: E11.9 Type 2 diabetes mellitus without complications (principal); E04.9 Nontoxic goiter, unspecified; E55.9 Vitamin D deficiency, unspecified
CPT/HCPCS: 36415; 80053; 82306; 84443

== ENCOUNTER → 2022-01-18 | Outpatient (CLI) | payer MEDICARE, OTHER, SELFPAY ==
--- NOTE | 2022-01-18 10:53 | BI_ITS ---
MAMMOGRAPHY - UNILATERAL SCREENING: RIGHT BREAST REASON FOR EXAM: Female, 66 years old. Routine annual screening examination (unilateral). PERTINENT HISTORY: Personal history of breast cancer. Prior left mastectomy. TECHNIQUE: Digital unilateral breast dom (3D mammographic acquisition) in the CC and MLO projections. 2-D mediolateral oblique (MLO) and craniocaudad (CC) views of both breasts were obtained. CAD: Full Field Digital Mammography with Computer Added Detection was performed. COMPARISON: Comparison is made with prior study dated 01/17/2021 and 01/17/2020. FINDINGS: Breast Composition: The breasts are heterogeneously dense, which may obscure small masses. There are no dominant masses or suspicious calcifications. No other significant abnormalities are identified. There has been no significant change since the prior study. BI/SCREEN MAMM (CAD) W/DOM UNI R IMPRESSION: Stable unilateral screening mammogram. Yearly follow-up mammogram recommended. (A) ASSESSMENT CATEGORY: BIRADS Category 1: Negative. A letter regarding these results will be sent to the patient by the facility within 30 days. Approximately 10% of breast cancers are not detected by mammography. A normal mammogram should not delay biopsy of a clinically suspicious abnormality. [id number] Electronically Signed: Elian Ronquillo MD at 12:19 EDT ,
== END | disposition home or self-care (01) ==
LOC: OPBI 10:52
PROVIDERS: PCP Family Medicine; Referring Provider Obstetrics & Gynecology; Visit Provider Obstetrics & Gynecology
DX: Z12.31 Encounter for screening mammogram for malignant neoplasm of breast (principal); Z90.12 Acquired absence of left breast and nipple; Z85.3 Personal history of malignant neoplasm of breast
CPT/HCPCS: 77063; 77067

== ENCOUNTER → 2022-06-27 | Outpatient (CLI) | payer MEDICARE, OTHER, SELFPAY ==
--- NOTE | 2022-06-27 10:43 | BD_ITS ---
STUDY: DUAL ENERGY X-RAY ABSORPTIOMETRY / DXA REASON FOR EXAM: Female, 67 years old. Osteoporosis TECHNIQUE: Bone Mineral Density (BMD) measurements of lumbar spine and bilateral hips were obtained. COMPARISON: Comparison is made with prior study dated 12/10/2012. FINDINGS: Lumbar Spine (L1-L4): g/cm2 (0.581) / T-score (-4.2) / Z-score (-2.3) Findings are suggestive of osteoporosis with a high fracture risk. Left Femur Total: g/cm2 (0.626) / T-score (-2.6) / Z-score (-1.2) Left Femoral Neck: g/cm2 (0.583) / T-score (-2.4) / Z-score (-0.8) Right Femur Total: g/cm2 (0.615) / T-score (-2.7) / Z-score (-1.3) Right Femoral Neck: g/cm2 (0.537) / T-score (-2.8) / Z-score (-1.2) The T-Scores on the most recent prior examination were: Lumbar Spine (L1-L4): There has been improvement of bone density since the previous examination. Left Femur Total: which represents a worsening of 2.5%. Right Femur Total: which represents a worsening of 5%. BD/Dexa Bone Density Study IMPRESSION: The patient is considered osteoporotic as outlined below according to World Giovani Organization (WHO) criteria with a high fracture risk. There has been worsening of bone density since the previous examination. Reference Information: The T-score is the number of standard deviations above or below the standard which is normal for young adults at their peak bone mineral density. The World Health Organization (WHO) interprets the T-scores as follows: Above -1 Normal bone density Between -1 and -2.5 Osteopenia Equal to / or below -2.5 Osteoporosis As a practical clinical guideline, osteopenia may be graded as follows: Mild -1 through -1.5 Moderate -1.6 through -2.0 Severe -2.1 through -2.4 The Z-score is the number of standard deviations above or below age-matched controls. A Z-score of less than -1.5 would be considered abnormal. References: 1. NIH Osteoporosis and Related Bone Diseases www osteo.org 2. International Society for Clinical Densitometry www iscd.org 3. National Osteoporosis Foundation www nof.org Electronically Signed: Elian Ronquillo MD at 9:21 EST ,
[2022-06-27 12:32] LABS: Vitamin D,25 Hydroxy 58.1 ng/mL
[2022-06-27 12:33] LABS: ALB/GLOB Ratio 1.2 RATIO (0.9-2.4); AST(SGOT) 16 U/L (15-37); Alanine Aminotransfer ALT/SGPT 22 U/L (13-56); Albumin, Serum 3.8 g/dL (3.2-5.0); Alkaline Phosphatase 83 U/L (45-117); Anion Gap 7 (5-15); BUN 14 mg/dL (7-18); BUN/Creat Ratio 21.8 RATIO (10-20); Calcium,Total 9.4 mg/dL (8.5-10.1); Chloride 103 mmol/L (98-107); Creatinine, Serum 0.64 mg/dL (0.55-1.02); EST Glomerular Filtration Rate 98 mL/min (>60); Est Glom Filt Rate - Afr Amer 119 mL/min (>60); Globulin 3.2 g/dL (2.2-4.2); Glucose 115 mg/dL (74-106); Potassium 3.7 mmol/L (3.5-5.1); Sodium Level 138 mmol/L (136-145)
== END | disposition home or self-care (01) ==
LOC: OPBD 10:10
PROVIDERS: PCP Family Medicine; Referring Provider Internal Medicine Endocrinology, Diabetes & Metabolism; Visit Provider Internal Medicine Endocrinology, Diabetes & Metabolism
DX: M81.0 Age-related osteoporosis without current pathological fracture (principal); E55.9 Vitamin D deficiency, unspecified
CPT/HCPCS: 36415; 77080; 80053; 82306

== ENCOUNTER → 2023-01-20 | Outpatient (CLI) | payer MEDICARE, OTHER, SELFPAY ==
--- NOTE | 2023-01-20 09:35 | BI_ITS ---
MAMMOGRAPHY - UNILATERAL SCREENING: RIGHT BREAST REASON FOR EXAM: Female, 67 years old. Routine annual screening examination (unilateral). PERTINENT HISTORY: Personal history of breast cancer. Prior left mastectomy. TECHNIQUE: Digital unilateral breast dom (3D mammographic acquisition) in the CC and MLO projections. 2-D mediolateral oblique (MLO) and craniocaudad (CC) views of both breasts were obtained. CAD: Full Field Digital Mammography with Computer Added Detection was performed. COMPARISON: Comparison is made with prior study dated January 18, 2022 and January 17, 2021. FINDINGS: Breast Composition: The breasts are heterogeneously dense, which may obscure small masses. There are no dominant masses or suspicious calcifications. No other significant abnormalities are identified. There has been no significant change since the prior study. BI/SCREEN MAMM (CAD) W/DOM UNI R IMPRESSION: Stable unilateral screening mammogram. Yearly follow-up mammogram recommended. (A) ASSESSMENT CATEGORY: BIRADS Category 1: Negative. A letter regarding these results will be sent to the patient by the facility within 30 days. Approximately 10% of breast cancers are not detected by mammography. A normal mammogram should not delay biopsy of a clinically suspicious abnormality. [id number] Electronically Signed: Elian Ronquillo MD at 11:13 EDT ,
== END | disposition home or self-care (01) ==
PROVIDERS: PCP Family Medicine; Referring Provider Obstetrics & Gynecology; Visit Provider Obstetrics & Gynecology
DX: Z12.31 Encounter for screening mammogram for malignant neoplasm of breast (principal)
CPT/HCPCS: 77063; 77067

== ENCOUNTER → 2023-06-24 | Outpatient (CLI) | payer MEDICARE, OTHER, SELFPAY ==
[2023-07-02 22:50] LABS: HPV Reflexed? NOT INDICATED
== END | disposition home or self-care (01) ==
PROVIDERS: PCP Family Medicine; Visit Provider Obstetrics & Gynecology
DX: Z12.4 Encounter for screening for malignant neoplasm of cervix (principal); N95.0 Postmenopausal bleeding
CPT/HCPCS: 87070; 87077; 87205; 88175; G0145

== ENCOUNTER → 2023-06-28 | Outpatient (CLI) | payer MEDICARE, OTHER, SELFPAY ==
--- NOTE | 2023-06-28 10:17 | US_ITS ---
STUDY: ULTRASOUND OF THE FEMALE PELVIS - COMPLETE REASON FOR EXAM: Female, 68 years old. PMB LMP: TECHNIQUE: Transabdominal and Transvaginal TECHNICAL QUALITY: Adequate. COMPARISON: None. FINDINGS: The uterus is anteverted and is in a midline position. The uterus measures 7.5 x 3.2 x 2.4 cm. Normal uterine cervix. The endometrium measures 4 mm in thickness, and is hyperechoic. There is no demonstrated endometrial mass. There is diffuse uterine heterogeneity suggestive of diffuse leiomyomatous change. There is a 2.4 cm lower uterine focal fibroid. The right ovary is non-visualized. The left ovary is non-visualized. There is no fluid in the cul-de-sac. The pre void volume of the bladder was 323 ml. Polycystic ovary disease: No. US/Pelvic w/ Transvaginal IMPRESSION: Possible diffuse leiomyomatous change of the uterus with at least one focal fibroid. Electronically Signed: Paramjit Collins MD at 23:02 EST ,
== END | disposition home or self-care (01) ==
LOC: US 10:14
PROVIDERS: PCP Family Medicine; Referring Provider Obstetrics & Gynecology; Visit Provider Obstetrics & Gynecology
DX: N95.0 Postmenopausal bleeding (principal)
CPT/HCPCS: 76830; 76856

== ENCOUNTER → 2023-07-10 | Outpatient (CLI) | payer MEDICARE, OTHER, SELFPAY ==
--- OUTSIDE RECORDS SUMMARY | 2023-07-10 07:05 | XMS RPT_ITS | CCD ---
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 Name Role Phone Terri Weinstein MD Unavailable [phone] Eliud Romero MD Primary Care Provider Scott Franco Primary Care Provider Medications Completed/Discontinued Medications Medication Drug Class(es) Dates Sig (Normalized) Sig (Original) cholecalciferol 2000 unt oral tablet (2 sources) Vitamin D take 1 tablet by mouth once daily VITAMIN D 2000 UNIT CAPS One tablet by mouth daily CHOLECALCIFEROL [id number] Essence Miranda LPN hydroCHLOROthiazide 25 mg oral tablet (3 sources) Thiazide Diuretic Start: 2 take 1 tablet by mouth once daily hydrochlorothiazide 25 mg tablet Take 1 tablet by mouth once daily. 90 tablet 4 03/06/2012 Active Problems Active Problems Problem Classification Problem Date Documented Date Episodic/Chronic Cancer of breast (5 sources) Malignant neoplasm of unspecified site of unspecified female breast; Translations: [Malignant neoplasm of female breast] Onset: 10-12-1996 Resolved: 04-04-2017 04-04-2017 Chronic Osteoporosis (1 source) Senile osteoporosis; Translations: [Age-related osteoporosis without current pathological fracture] Onset: 07-16-2005 10-02-2012 Chronic Other nutritional; endocrine; and metabolic disorders (1 source) Hypercalcemia; Translations: [Hypercalcemia] Onset: 09-26-2011 10-02-2012 Chronic Unclassified (2 sources) Gynecologic examination ; Translations: [Encounter for gynecological examination (general) (routine) without abnormal findings] Onset: 04-04-2017 04-04-2017 Past or Other Problems Problem Classification Problem Date Documented Da te Episodic/Chronic Allergic reactions (4 sources) Urticaria; Translations: [Urticaria, unspecified] Onset: 10-06-2009 10-02-2012 Episodic Cancer of breast (2 sources) History of malignant neoplasm of breast; Translations: [Personal history of malignant neoplasm of breast] Onset: 10-18-2015 10-18-2015 Episodic Cardiac dysrhythmias (1 source) Palpitations; Translations: [Palpitations] Onset: 09-20-2005 10-02-2012 Episodic Genitourinary symptoms and ill-defined conditions (1 source) Hypercalciuria; Translations: [Hypercalciuria] Onset: 09-26-2011 10-02-2012 Episodic Inflammatory diseases of female pelvic organs (1 source) Vulvitis; Translations: [Acute vulvitis] Onset: 10-29-2013 10-29-2013 Episodic Other hematologic conditions (2 sources) Erythrocytosis; Translations: [Secondary polycythemia] Onset: 01-01-2016 01-02-2016 Episodic Other inflammatory condition of skin (1 source) Itching of skin; Translations: [Pruritus, unspecified] Onset: 10-06-2009 10-02-2012 Episodic Other inflammatory condition of skin (1 source) Other specified erythematous conditions; Translations: [Other specified erythematous conditions] Onset: 10-06-2009 10-02-2012 Episodic Other skin disorders (1 source) Asteatosis cutis; Translations: [Xerosis cutis] Onset: 10-06-2009 10-02-2012 Episodic Spondylosis; intervertebral disc disorders; other back problems (1 source) Backache; Translations: [Dorsalgia, unspecified] Onset: 09-20-2005 10-02-2012 Episodic Unclassified (2 sources) FH: Diabetes mellitus; Translations: [Family history of diabetes mellitus] 12-21-2014 Episodic Results Test Name Value Interpretation Reference Range Facil ity Vital Signs Date Time Vital Sign Value Performing Clinician Danielle litrandy 04-04-2017 09:07-0400 BMI (Body Mass Index) 1.43 kg/m2 Terri Weinstein MD [facility] [place] 04-04-2017 09:07-0400 Body Temperature 98.6 [degF] Terri Weinstein MD [facility] [place] 04-04-2017 09:07-0400 BP Diastolic 70 mm[Hg] Terri Weinstein MD [facility] [place] 04-04-2017 09:07-0400 BP Systolic 111 mm[Hg] Terri Weinstein MD [facility] 04-04-2017 09:07-0400 Height 160.02 cm Terri Weinstein MD [facility] 04-04-2017 09:07-0400 Pulse (Heart Rate) 79 /min Terri Weinstein MD [facility] 04-04-2017 09:07-0400 Weight 3.65 kg Terri Weinstein MD [facility] 01-01-2016 15:32-0400 BSA (Body Surface Area) 1.69 m2 Terri Weinstein MD [facility] 01-01-2016 15:32-0400 Height 161.29 cm Terri Weinstein MD [facility] 01-01-2016 15:32-0400 Respiratory Rate 16 /min Terri Weinstein MD [facility] 01-01-2016 15:32-0400 Weight 65.55 kg Terri Weinstein MD [facility] Encounters Encounter Date Encounter Type Care Provider Facility Start: 10-02-2012 End: 10-02-2012 Telephone encounter Kevin Manuel MD Work Phone: Endocrinology Procedures Date Procedure Procedure Detail Performing Clinician Start: 05-10-2016 Colonoscopy Kevin martinez MD Work Phone: Start: 12-25-2015 End: 12-27-2015 *CBC with Differential Emigdoi Parks Work Phone: Start: 12-25-2015 End: 12-27-2015 *CMP Complete Metabolic Panel Emigdio Parks Work Phone: Start: 12-25-2015 End: 12-27-2015 Lactate dehydrogenase (LDH) Emigdio daly Work Phone: Start: 12-25-2015 End: 12-27-2015 Urate Emigdio Parks Work Phone: Start: 12-14-2014 Mammography Kevin martinez MD Work Phone: Plan of Treatment Date Care Activity Detail Author Start: 05-10-2026 Screening for malignant neoplasm of colon [facility] Start: 10-02-2022 Urine microalbumin profile DTAP,TDAP,TD (3 - Td or Tdap) [facility] Start: 03-14-2021 Influenza vaccination INFLUENZA (Season Ended) [facility] Start: 01-22-2020 ADVANCE DIRECTIVE DISCUSSION ADVANCE DIRECTIVE DISCUSSION [facility] Start: 01-22-2020 BONE DENSITY BONE DENSITY [facility] Start: 01-22-2020 PNEUMOVAX AGE 65 AND OVER WITH 5YR LOOKBACK (#1) PNEUMOVAX AGE 65 AND OVER WITH 5YR LOOKBACK (#1) [facility] Start: 10-15-2017 LIPID SCREEN LIPID SCREEN [facility] Start: 04-04-2017 End: 04-04-2017 Appointment Appointment [facility] Start: 03-16-2017 DIABETES SCREEN DIABETES SCREEN [facility] Start: 07-01-2016 End: 01-01-2016 *CBC with Differential *CBC with Differential [facility] Start: 12-25-2015 End: 12-27-2015 *CBC with Differential *CBC with Differential [facility] Start: 12-25-2015 End: 12-27-2015 *CMP Complete Metabolic Panel *CMP Complete Metabolic Panel [facility] Start: 12-25-2015 End: 12-27-2015 Lactate dehydrogenase (LDH) *LDH -LDH (Lactate Dehydrogenase) [facility] Start: 12-25-2015 End: 12-27-2015 Urate *Uric Acid Blood [facility] Start: 12-15-2015 Mammography MAMMOGRAM [facility] Start: 2005 Screening for malignant neoplasm of colon [facility] Start: 2005 SHINGRIX VACCINE (1 of 2) SHINGRIX VACCINE (1 of 2) [facility] Start: 1973 HEPATITIS C SCREENING HEPATITIS C SCREENING [facility] Start: 1973 HIV SCREENING HIV SCREENING [facility] Start: 1967 Adult depression screening assessment DEPRESSION SCREENING [facility] Immunizations Immunization Date Immunization Notes Care Provider Fa duy 10-02-2012 tetanus toxoid, redu olaf diphtheria toxoid, and acellular pertussis vaccine, adsorbed Kevin Manuel MD Work Phone: [facility] 07-14-1999 diphtheria and tetan us toxoids, adsorbed for pediatric use Kevin Manuel MD Work Phone: [facility] Payers Date Payer Category Payer Unknown [employer] [place] [employer] O [id number] 1996-2013 O [id number] Social History Date Type Detail Facility Start: 10-02-2012 Tobacco smoking stat us CAIS Never smoker [facility] Start: 10-02-2012 Tobacco use and exposure Never used [facility] Start: 10-02-2012 Alcohol intake Current non-dr veterans' counselor of alcohol (finding) [facility] Start: 1955 Sex Assigned At Not on file [facility] History of Past illness Narrative 05-10-2016 Note Date & Type Note Facility documented as of this encounter (statuses as of 11/08/2020) [facility] Advance Directives Documents on File Type Date Recorded Patient 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 This clinical summary was aggregated from multiple sources. Caution should be exercised in using it in the provision of clinical care. This summary normalizes information from multiple sources, and as a consequence, information in this document may materially change the coding, format and clinical context of patient data. In addition, data may be omitted in some cases. CLINICAL DECISIONS SHOULD BE BASED ON THE PRIMARY CLINICAL RECORDS. [facility]. provides no warranty or guarantee of the accuracy or completeness of information in this document.
[2023-07-10 10:25] LABS: Vitamin D,25 Hydroxy 62.1 ng/mL
[2023-07-10 10:27] LABS: Hemoglobin A1c 5.4 % (3.8-5.6)
[2023-07-10 10:33] LABS: Microalbumin,Random Urine 13.2 mg/L (NO RANGE EST.); Microalbumin:Creatinine Ratio 18.6 mg/g CRE (<30 mg/g CRE)
[2023-07-10 10:37] LABS: ALB/GLOB Ratio 1.1 RATIO (0.9-2.4); AST(SGOT) 21 U/L (15-37); Alanine Aminotransfer ALT/SGPT 25 U/L (13-56); Albumin, Serum 3.7 g/dL (3.2-5.0); Alkaline Phosphatase 85 U/L (45-117); Anion Gap 5 (5-15); BUN 14 mg/dL (7-18); BUN/Creat Ratio 21.4 RATIO (10-20); Calcium,Total 8.7 mg/dL (8.5-10.1); Chloride 108 mmol/L (98-107); Cholesterol 196 mg/dL (200); Creatinine, Serum 0.65 mg/dL (0.55-1.02); EST Glomerular Filtration Rate 96 mL/min (>60); Est Glom Filt Rate - Afr Amer 116 mL/min (>60); Globulin 3.5 g/dL (2.2-4.2); Glucose 93 mg/dL (74-106); High Density Lipoprotein 81 mg/dL; Protein, Total 7.2 g/dL (6.4-8.2); Sodium Level 143 mmol/L (136-145); Thyroid Stim Hormone (TSH) 2.07 uIU/mL (0.358-3.74); Triglycerides 100 mg/dL; Very Low Density Lipoprotein 20 mg/dL (5-40)
== END | disposition home or self-care (01) ==
LOC: MTLAB 07:02
PROVIDERS: PCP Family Medicine; Referring Provider Nurse Practitioner Family; Visit Provider Nurse Practitioner Family
DX: E11.9 Type 2 diabetes mellitus without complications (principal); M81.0 Age-related osteoporosis without current pathological fracture
CPT/HCPCS: 36415; 80053; 80061; 82043; 82306; 82570; 83036; 84443

== ENCOUNTER 2023-09-16 06:51 | Day surgery (SDC) | payer MEDICARE, OTHER, SELFPAY ==
--- NOTE | 2023-09-04 10:18 | EKG12_ITS ---
Test Reason : PRE-OP Blood Pressure : / mmHG Vent. Rate : 068 BPM Atrial Rate : 068 BPM P-R Int : 122 ms QRS Dur : 072 ms QT Int : 422 ms P-R-T Axes : 044 039 056 degrees QTc Int : 448 ms Normal sinus rhythm Nonspecific T wave abnormality Abnormal ECG Confirmed by AURORA SALINAS, NACHO ([id number]), editor school photograph SAE HUSTON ([id number]) on 09/05/2023 6:49:38 AM Referred By: Terri Weinstein Confirmed By:NACHO SIMON MD
[2023-09-04 11:07] LABS: Hematocrit 46.6 % (37-47); Hemoglobin 14.7 g/dL (12.0-15.0); Mean Corp Hgb Conc 31.5 g/dL (32-36); Mean Corpuscular Hgb 28.5 pg (27.0-32.0); Mean Corpuscular Volume 90.3 fL (81-99); Mean Platelet Vol. 11.1 fl (6.2-12.0); Platelet Count 220 K/mm3 (150-450); RBC Distribution Width CV 12.4 % (11.6-14.6); RBC Distribution Width SD 41.1 fl (35.1-43.9); Red Blood Count 5.16 M/mm3 (4.2-5.4); White Blood Count 4.2 K/mm3 (4.4-11.0)
[2023-09-04 11:54] LABS: Anion Gap 2 (5-15); BUN 13 mg/dL (7-18); BUN/Creat Ratio 20.1 RATIO (10-20); Calcium,Total 9.4 mg/dL (8.5-10.1); Chloride 107 mmol/L (98-107); Creatinine, Serum 0.65 mg/dL (0.55-1.02); EST Glomerular Filtration Rate 97 mL/min (>60); Est Glom Filt Rate - Afr Amer 117 mL/min (>60); Glucose 89 mg/dL (74-106); Sodium Level 138 mmol/L (136-145)
[2023-09-05 08:30] LABS: AST(SGOT) 18 U/L (15-37); Alanine Aminotransfer ALT/SGPT 21 U/L (13-56); Albumin, Serum 3.8 g/dL (3.2-5.0); Alkaline Phosphatase 88 U/L (45-117); Bilirubin, Direct 0.16 mg/dL (0.00-0.30); Globulin 3.4 g/dL (2.2-4.2); Protein, Total 7.2 g/dL (6.4-8.2)
--- OUTSIDE RECORDS SUMMARY | 2023-09-16 07:07 | XMS RPT_ITS | CCD ---
Author Name Unknown Address [address] [place] [address] Organization [facility] Care Team Providers Care [employer] Name Role Phone Terri Weinstein MD Unavailable [phone] Eliud Romero MD Primary Care Provider [phone] Scott Franco Primary Care Provider Medications Completed/Discontinued Medications Medication Drug Class(es) Dates Sig (Normalized) Sig (Original) cholecalciferol 2000 unt oral tablet (2 sources) Vitamin D take 1 tablet by mouth once daily VITAMIN D 2000 UNIT CAPS One tablet by mouth daily CHOLECALCIFEROL [id number] Essence Miranda LPN hydroCHLOROthiazide 25 mg oral [...] Mass Index) 1.43 kg/m2 Terri Weinstein MD [facility] 04-04-2017 09:07-0400 Body Temperature 98.6 [degF] Terri Weinstein MD [facility] 04-04-2017 09:07-0400 BP Diastolic 70 mm[Hg] Terri Weinstein MD [facility] 04-04-2017 09:07-0400 BP Systolic 111 mm[Hg] Terri Weinstein MD [facility] 04-04-2017 09:07-0400 Height 160.02 cm Terri Weinstein MD [facility] 04-04-2017 09:07-0400 Pulse (Heart Rate) 79 /min Terri Weinstein MD [facility] 04-04-2017 09:07-0400 Weight 3.65 kg Terri Weinstein MD [facility] 01-01-2016 15:32-0400 BSA (Body Surface Area) 1.69 m2 Terri Weinstein MD [facility] 01-01-2016 15:32-0400 Height 161.29 cm Terri Weinstein MD [facility] 01-01-2016 15:32-0400 Respiratory Rate 16 /min Terri Weinstein MD [facility] 01-01-2016 15:32-0400 Weight 65.55 kg Terri Weinstein MD [facility] Encounters Encounter Date Encounter Type Care Provider Facility Start: 10-02-2012 End: 10-02-2012 Telephone encounter Kevin Manuel MD Work Phone: Endocrinology Procedures Date Procedure Procedure Detail Performing Clinician Start: 05-10-2016 Colonoscopy Kevin martinez MD Work Phone: Start: 12-25-2015 End: 12-27-2015 *CBC with Differential Emigdio Parks Work Phone: Start: 12-25-2015 End: 12-27-2015 *CMP Complete Metabolic Panel Emigdio Parks Work Phone: Start: 12-25-2015 End: 12-27-2015 Lactate dehydrogenase (LDH) Emigdio daly Work Phone: Start: 12-25-2015 End: 12-27-2015 Urate Emigido Parks Work Phone: Start: 12-14-2014 Mammography Kevin martinez MD Work Phone: Plan of Treatment Date Care Activity Detail Author Start: 05-10-2026 Screening for malignant neoplasm of colon [facility] Start: 10-02-2022 Urine microalbumin profile DTAP,TDAP,TD (3 - Td or Tdap) [facility] Start: 03-14-2021 Influenza vaccination INFLUENZA (Season Ended) [facility] Start: 01-22-2020 ADVANCE DIRECTIVE DISCUSSION ADVANCE DIRECTIVE DISCUSSION [facility] Start: 01-22-2020 BONE DENSITY BONE DENSITY [facility] Start: 01-22-2020 PNEUMOVAX AGE 65 AND OVER WITH 5YR LOOKBACK (#1) PNEUMOVAX AGE 65 AND OVER WITH 5YR LOOKBACK (#1) [facility] Start: 10-15-2017 LIPID SCREEN LIPID SCREEN [facility] Start: 04-04-2017 End: 04-04-2017 Appointment Appointment [facility] Start: 03-16-2017 DIABETES SCREEN DIABETES SCREEN [facility] Start: 07-01-2016 End: 01-01-2016 *CBC with Differential *CBC with Differential [facility] Start: 12-25-2015 End: 12-27-2015 *CBC with Differential *CBC with Differential [facility] Start: 12-25-2015 End: 12-27-2015 *CMP Complete Metabolic Panel *CMP Complete Metabolic Panel [facility] Start: 12-25-2015 End: 12-27-2015 Lactate dehydrogenase (LDH) *LDH -LDH (Lactate Dehydrogenase) [facility] Start: 12-25-2015 End: 12-27-2015 Urate *Uric Acid Blood [facility] Start: 12-15-2015 Mammography MAMMOGRAM [facility] Start: 2005 Screening for malignant neoplasm of colon [facility] Start: 2005 SHINGRIX VACCINE (1 of 2) SHINGRIX VACCINE (1 of 2) [facility] Start: 1973 HEPATITIS C SCREENING HEPATITIS C SCREENING [facility] Start: 1973 HIV SCREENING HIV SCREENING [facility] Start: 1967 Adult depression screening assessment DEPRESSION SCREENING [facility] Immunizations Immunization Date Immunization Notes Care Provider Fa duy 10-02-2012 tetanus toxoid, redu olaf diphtheria toxoid, and acellular pertussis vaccine, adsorbed Kevin Manuel MD Work Phone: [facility] 07-14-1999 diphtheria and tetan us toxoids, adsorbed for pediatric use Kevin Manuel MD Work Phone: [facility] Payers Date Payer Category Payer Unknown [employer] [place] [employer] O [id number] 1996-2013 O [id number] Social History Date Type Detail Facility Start: 10-02-2012 Tobacco smoking stat us NJIS Never smoker [facility] Start: 10-02-2012 Tobacco use and exposure Never used [facility] Start: 10-02-2012 Alcohol intake Current non-dr yeast washer of alcohol (finding) [facility] Start: 1955 Sex Assigned At Not on file [facility] History of Past illness Narrative 05-10-2016 Note Date & Type Note Facility documented as of this encounter (statuses as of 11/08/2020) [facility] Advance Directives Documents on File Type Date Recorded Patient Blindmaker Expl anation Advance Directive(s) 05/10/2016 12:31 PM Additional Source Comments Source Comments (unrecognize d section and content) In the event this informatio n is protected by the Federal Confidentiality of Alcohol and Drug Abuse Patient Records regulations: The Federal rules restrict any use of the information to criminally investigate or prosecute any alcohol or drug abuse patient.[facility] FOR RECORDS PERTAINING TO PATIENTS WHO ARE [...] BE BASED ON THE PRIMARY CLINICAL RECORDS. [facility]. provides no warranty or guarantee of the accuracy or completeness of information in this document.
[2023-09-16] MEDS: Lactated Ringers 1,000 ML 15 ML IV (07:34)
[2023-09-16 07:35] VITALS: BP 107/58; PULSE 81; RESP 16; TEMP 37.1; O2SAT 100; BMI 21.2
[2023-09-16 07:38] LABS: Bedside Glucose 98 mg/dL (74-106)
--- NOTE | 2023-09-16 08:30 | EMB_PTH ---
PATHOLOGY RESULTS PATIENT: RADHA CORNELIUS LOC: [facility] [place] U[place][id number] AGE/SX: 68/F ROOM: RE09/16/[address]: Dr. Terri Weinstein MD : 1955 BED: DIS: 09/16/2023 SPEC #: [id number] RECD: 09/16/23 11:36 STATUS: JANICE LAM #: [id number] JOSE: 09/16/23 08:[address]: Terri Weinstein DEPT: SURGICAL PATHOLOGY RECD BY: Abril Da Silva ENTERED: 09/16/23 11:36 SP TYPE: ENDOM BX/C OTHR DR: Dr. Nidia Shea MD Tissues: Endometrium, NOS Procedures: Surgery Specimen Level IV HEADER OPERATION: Hysteroscopy, D & C Symphion, polypectomy PRE-OP DIAGNOSIS: Postmenopausal bleeding TISSUE SUBMITTED: Endometrial curettings and polyp MICROSCOPIC DIAGNOSIS Endometrium, curettings and polyp: Simple cystic hyperplasia with atrophic changes. Fragments of benign myometrial tissue. AM:nikhil 09/17/2023 COMMENT There is no evidence of atypia. MICROSCOPIC DESCRIPTION Slides are reviewed. GROSS DESCRIPTION Received in fixative is one container labeled with the patient's name and designated endometrial curettings and polyp. The specimen consists of multiple irregular fragments of mario, indurated tissue that in aggregate measure 5.0 x 3.0 x 0.3 cm. The specimen is totally submitted in one cassette. / SJ:nikhil 09/16/2023 TC:5 CPT: 84944
--- NOTE | 2023-09-16 08:35 | PCM.HP.BLA ---
History and Physical Vital Signs 06/24/2315:43 07/29/2409:48 07/31/2413:39 Height 5 ft 3.5 in 5 ft 3.5 in 5 ft 3.5 in Weight: 123 lb 8 oz 124 lb BMI 21.5 21.6 BP 116/78 122/69 H Blood Pressure Location Rt brachial Position Sitting Respiration 16 Pulse 70 Pulse Source Monitor Temp 97.9 F Pulse Oximetry (%) 98 Oxygen Delivery Method room air Intake Visit Reasons: US followup/discuss management Allergies No Known Allergies Allergy (Verified 07/31/23 14:39) Medications cholecalciferol (vitamin D3) 50 mcg (2,000 unit) capsule 2,000 unit PO DAILY 01/02/17 [History Confirmed 07/31/23] PFSH Medical History Breast cancer Diabetes Hypercalcemia Hypokalemia Osteoporosis Surgical History H/O mastectomy H/O tubal ligation S/P appendectomy Family History Mother Diabetes CVA (cerebral vascular accident)Father Diabetes Myocardial infarctionSister Diabetes Pancreatic cancer Social History Smoking Status: Former smoker alcohol intake: never substance use type: does not use caffeine: Yes what type of physical activity do you participate in: walking frequency: 3-4 times per week seatbelt use: always do you feel safe at home: Yes additional social history: - 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 she denies any pelvic pain, no fevers. she had a slight increase in her HgA1C. History 3 Elective abortions Hx Para 3 Spontaneous abortions Hx # Term Pregnancies Ectopic pregnancies Hx # Pregnancies Multiple births # of living children Past Pregnancies Del. Date Name GA/Weeks Outcome Route Bth Weight Gen Labor Lgth Anesthesia Del Locatn Provider FOB Unknown Paula-1973 Unknown Karen-1975 Unknown Daniel-1976 ROS Const Constitutional: Denies fatigue, fever(s), headache(s), increased appetite, poor appetite, weight gain or weight loss GI GI: Reports as per HPI; Denies abdominal pain, constipation, nausea or vomiting : Reports as per HPI; Denies difficulty voiding, dysuria, hematuria, pelvic pain, urinary frequency, urinary incontinence, urinary hesitancy, urinary urgency, vaginal discharge, vaginal dryness, vaginal odor, vaginal pruritus or other Exam Const General: cooperative, healthy appearing, comfortable, no acute distress and well developed Orientation: alert HENIN Head: normal to inspection and normocephalic Ears: hearing grossly normal bilaterally and external ears normal Nose: external nose normal and nares normal Face and sinus: normal facial exam Neck Neck: normal visual inspection, no lymphadenopathy and trachea midline Thyroid: thyroid normal Resp Effort & Inspection: normal respiratory effort Musc Other: gross motor intact no deficits, full bilateral strength Skin General: no rashes or lesions noted Neuro Motor: muscle tone normal throughout Coding Level of Care Code Off vis,est,level 4 Diagnoses Postmenopausal bleeding N95.0 Type 2 diabetes mellitus without complication, without long-term current use of insulin E11.9 Diabetes mellitus type: type 2 Diabetes mellitus snf insulin use: without snf use Diabetes mellitus complication status: without complication Breast cancer C50.919 EVENT PLANNING INTERN exam for high-risk Medicare patient Z91.89 Assessment and Plan Assessment and Plan (1) Postmenopausal bleeding: Status: Acute Comment: 4 mm lining hyperechoic, leiomyomatous change, plan d and c hysteroscopy have symphion available (2) Diabetes: Status: Chronic Qualifiers: Diabetes mellitus type: type 2 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 I have discussed with the patient the risks, benefits, and alternatives of the procedure which include but are not limited to risks of anesthesia, bleeding, infection, possible damage to bowel, bladder, or surrounding vasculature which could lead to additional surgery to evaluate any complications. Patient agrees to procedure and wishes to proceed. ACOG/uptodate references given for additional information regarding procedure. UPDATE- I have seen the patient and performed any clinically relevant updates to the history and physical exam. Terri Weinstein MD
[2023-09-16] MEDS: Lidocaine 1% (20 ml mdv) 20 ML Vial (08:46)
--- NOTE | 2023-09-16 08:53 | OP.PCM_ITS ---
Problems Associated Problem List Diagnoses (1) Postmenopausal bleeding: (2) History of hysteroscopy: Report of Operation Date of Procedure: 09/16/23 Pre-Operative Diagnosis: see problem list Post-Operative Diagnosis: same Surgery/Procedure Performed:: D&C hysteroscopy polypectomy using symphion Description of Surgical Findings:: endometrial polyp Surgeon: Terri Weinstein print color operator: None Type of Anesthesia: Local MAC Special Medications: none Specimen's removed: EMC, polyp Drains: none Estimated Blood Loss (mL): 20 Fluids Replaced: crystalloid Description of Procedure: Patient was prepped and draped in a normal sterile fashion under MAC anesthesia. A weighted speculum was placed in the vagina and the anterior lip of the cervix was grasped with a single-tooth tenaculum. A paracervical block was placed with 1% lidocaine. Cervix was progressively dilated to allow passage of a 5 mm hysteroscope. The lining was fully visualized and noted to have a polyp . Uterine sounded to 8 cm. Using the symphion device, the polyp was progressively removed without complications. Direct visual curettage was performed using the device , and all specimens were sent to pathology. All instruments were removed from the vagina and excellent hemostasis was noted. Patient was awoken and taken to recovery in stable condition. Grafts/Implants Used: none Procedure Start Time: 08:46 Procedure Stop Time: 08:51 Complications none Admit VTE Documentation VTE Present on Admission: No VTE Mechan Device Prophylaxis: SCD's Multi Select Codes Urinary/Genital Urinary/Genital CPT Codes: 33275 Hysteroscopy,EMC, Polypectomy
--- NOTE | 2023-09-16 08:56 | PCM.DC ---
Discharge Instructions Diet Discharge Diet: No restrictions Activity Discharge Activity: Return to Normal Activity, May Shower and May Take a Tub Bath (after 1 week) May resume sexual activity in: 1-2 weeks Weight Bearing Status: Weight bearing as tolerated Lifting Restrictions: none Dressing / Incision Call your doctor if you observe: Fever of 101 or Higher, Using more than 1 pad per hour, Shortness of breath and Uncontrolled pain Follow Up Care Please Follow Up With: Terri Weinstein MD When: Call [phone] to schedule appointment. Test Results: Test results from this visit will be discussed in further detail at your follow-up appointment, if applicable. Discharge Plan Admission Attending Provider: Terri Weinstein Primary Care Provider: Nidia Shea Discharge Orders/Prescriptions Prescriptions: No Action cholecalciferol (vitamin D3) 2,000 UNIT capsule 2,000 unit PO DAILY Other Ambulatory Orders: 12 Lead EKG (Routine) Timeframe: [id number] Location: None Selected Ordered By: Dr. Terri Weinstein Liver Profile (Routine) Timeframe: [id number] Facility: [facility] - Location: Laboratory Ordered By: Dr. Terri Weinstein Referrals / Follow Up: Nidia Shea MD [Primary Care Provider] - Disposition Disposition (needs filled in before D/C Order can be placed): Home, Self Care
[2023-09-16 09:01] VITALS: BP 107/58; BP 124/65; PULSE 68; RESP 16; TEMP 36.8; O2SAT 100
[2023-09-16 09:05] VITALS: BP 107/58; BP 124/64; PULSE 74; RESP 18; O2SAT 100
[2023-09-16 09:10] VITALS: BP 107/58; BP 130/62; PULSE 74; RESP 18; O2SAT 99
[2023-09-16 09:15] VITALS: BP 107/58; BP 138/70; PULSE 74; RESP 18; TEMP 36.9; O2SAT 100
[2023-09-16 09:49] VITALS: BP 107/58
== END 2023-09-16 09:54 | disposition home or self-care (01) ==
LOC: SDC 06:52 → AC 06:53
PROVIDERS: PCP Family Medicine; Referring Provider Obstetrics & Gynecology; Visit Provider Obstetrics & Gynecology
PROC: 0UB98ZZ Excision of Uterus, Via Natural or Artificial Opening Endoscopic (ICD-10-PCS; CPT 58558; principal; 2023-09-16 08:15)
DX: N85.01 Benign endometrial hyperplasia (principal); E11.9 Type 2 diabetes mellitus without complications; N95.0 Postmenopausal bleeding; Z90.12 Acquired absence of left breast and nipple; Z85.3 Personal history of malignant neoplasm of breast; Z87.891 Personal history of nicotine dependence
CPT/HCPCS: 58558; 00952; 36415; 80048; 80076; 82962; 85027; 86850; 86900; 86901; 88305; 93005; J7120; J2405

== ENCOUNTER → 2024-01-22 | Outpatient (CLI) | payer MEDICARE, OTHER, SELFPAY ==
--- NOTE | 2024-01-22 09:06 | BI_ITS ---
MAMMOGRAPHY - UNILATERAL SCREENING: RIGHT BREAST REASON FOR EXAM: Female, 69 years old. Routine annual screening examination (unilateral). PERTINENT HISTORY: Personal history of breast cancer. Prior left mastectomy. TECHNIQUE: Digital unilateral breast dom (3D mammographic acquisition) in the CC and MLO projections. 2-D mediolateral oblique (MLO) and craniocaudad (CC) views of both breasts were obtained. CAD: Full Field Digital Mammography with Computer Added Detection was performed. COMPARISON: Comparison is made with prior study dated January 20, 2023 and January 18, 2022. FINDINGS: Breast Composition: The breasts are heterogeneously dense, which may obscure small masses. There are no dominant masses or suspicious calcifications. Stable benign-appearing bilateral axillary lymph nodes. No other significant abnormalities are identified. There has been no significant change since the prior study. BI/SCREEN MAMM (CAD) W/DOM UNI R IMPRESSION: Stable unilateral screening mammogram. Yearly follow-up mammogram recommended. (A) ASSESSMENT CATEGORY: BIRADS Category 2: Benign. A letter regarding these results will be sent to the patient by the facility within 30 days. Approximately 10% of breast cancers are not detected by mammography. A normal mammogram should not delay biopsy of a clinically suspicious abnormality. [id number] Electronically Signed: Elina Ronquillo MD at 10:21 EDT ,
== END | disposition home or self-care (01) ==
LOC: OPBI 09:05
PROVIDERS: PCP Family Medicine; Referring Provider Obstetrics & Gynecology; Visit Provider Obstetrics & Gynecology
DX: Z12.31 Encounter for screening mammogram for malignant neoplasm of breast (principal); Z85.3 Personal history of malignant neoplasm of breast
CPT/HCPCS: 77063; 77067

== ENCOUNTER → 2024-04-26 | Outpatient (CLI) | payer MEDICARE, OTHER, SELFPAY ==
--- NOTE | 2024-04-26 | EMB_PTH ---
PATIENT: RADHA CORNELIUS LOC: [facility] U#:[id number] AGE/SX: 69/F ROOM: RE04/26/[address]: Dr. Terri Weinstein MD : 1955 BED: DIS: 04/26/2024 SPEC #: [id number] RECD: 04/26/24 16:21 STATUS: JANICE LAM #: [id number] JOSE: 04/26/24 00:[address]: Terri Weinstein DEPT: SURGICAL PATHOLOGY RECD BY: Raymond Leon ENTERED: 04/27/24 11:09 SP TYPE: ENDOM BX/C DON DR: Dr. Nidia Shea MD Tissues: Endometrium, NOS Procedures: Surgery Specimen Level IV HEADER OPERATION: Endometrial biopsy PRE-OP DIAGNOSIS: Endometrial hyperplasia TISSUE SUBMITTED: Endometrial tissue MICROSCOPIC DIAGNOSIS Endometrium, biopsy: Benign stromal changes consistent with exogenous hormone effects. Inactive endometrium with cystic change. Mild chronic endometritis. AM.mr 04/28/2024 MICROSCOPIC DESCRIPTION Slides are reviewed. GROSS DESCRIPTION Received is one container labeled with the patient's name and not further designated. The specimen consists of multiple irregular fragments of pink mucoid tissue that in aggregate measure 2.0 x 2.5 x 0.1 cm. The specimen is totally submitted in one cassette. 04/27/2024 TC:3 CPT:[id number]
== END | disposition home or self-care (01) ==
LOC: LAB 16:43 → LABSPEC 16:43
PROVIDERS: PCP Family Medicine; Referring Provider Obstetrics & Gynecology; Visit Provider Obstetrics & Gynecology
DX: N71.1 Chronic inflammatory disease of uterus (principal)
CPT/HCPCS: 88305

== ENCOUNTER → 2024-06-29 | Outpatient (CLI) | payer MEDICARE, OTHER, SELFPAY ==
[2024-06-29 10:13] LABS: Microalbumin,Random Urine < 5.0 mg/L (NO RANGE EST.)
[2024-06-29 10:23] LABS: AST(SGOT) 18 U/L (15-37); Alanine Aminotransfer ALT/SGPT 20 U/L (13-56); Albumin, Serum 3.6 g/dL (3.2-5.0); Alkaline Phosphatase 83 U/L (45-117); Anion Gap 3 (5-15); BUN 12 mg/dL (7-18); BUN/Creat Ratio 19.7 RATIO (10-20); Calcium,Total 9.1 mg/dL (8.5-10.1); Chloride 107 mmol/L (98-107); Cholesterol 175 mg/dL (200); Creatinine, Serum 0.61 mg/dL (0.55-1.02); EST Glomerular Filtration Rate 104 mL/min (>60); Est Glom Filt Rate - Afr Amer 125 mL/min (>60); Globulin 3.6 g/dL (2.2-4.2); Glucose 78 mg/dL (74-106); High Density Lipoprotein 82 mg/dL; Potassium 3.8 mmol/L (3.5-5.1); Protein, Total 7.2 g/dL (6.4-8.2); Sodium Level 139 mmol/L (136-145); Triglycerides 67 mg/dL; Very Low Density Lipoprotein 13 mg/dL (5-40)
== END | disposition home or self-care (01) ==
LOC: MTLAB 07:03
PROVIDERS: PCP Family Medicine; Referring Provider Internal Medicine Endocrinology, Diabetes & Metabolism; Visit Provider Internal Medicine Endocrinology, Diabetes & Metabolism
DX: E11.9 Type 2 diabetes mellitus without complications (principal); E55.9 Vitamin D deficiency, unspecified; M81.0 Age-related osteoporosis without current pathological fracture
CPT/HCPCS: 36415; 80053; 80061; 82043; 82306; 82570; 84443

== ENCOUNTER → 2024-07-02 | Outpatient (CLI) | payer MEDICARE, OTHER, SELFPAY ==
--- NOTE | 2024-07-02 12:18 | BD_ITS ---
EXAM: XR DEXA BONE DENSITY AXIAL CLINICAL INDICATION: compare TECHNIQUE: Dual energy x-ray absorptiometry performed. Bone mineral density measurements were obtained of the lumbar spine and (optionally) the proximal femurs. Values are compared with gender matched average of normal, and with age, weight and ethnic origin (Z-score) and with healthy young adults (T-score). COMPARISON: Bone density exam from 06/27/2022. FINDINGS: LUMBAR SPINE BONE MINERAL DENSITY: 0.518 g/cm2 LUMBAR SPINE T-SCORE: -4.8 (previously -4.2) Right hip bone mineral density: 0.563 g/cm2 Right hip T score: -3.1 (previously -2.7) Left hip bone mineral density: 0.559 g/cm2 Left hip T score: -3.1 (previously -2.6) UNITS OF MEASURE: Bone mineral density is measured in g/cm2. Z-score is the number of standard deviations above age-matched controls. T-score is the number of standard deviations above healthy young adults. WORLD HEALTH ORGANIZATION GUIDELINES: T-score at or above -1 is normal bone mineral density. T-score between -1 and -2.5 is osteopenia. T-score at or below -2.5 is osteoporosis. BD/Dexa Bone Density Study IMPRESSION: Osteoporosis of the lumbar spine and hips. Some interval worsening compared with the 2021 exam. Electronically Signed: Leopoldo Zendejas MD at 23:11 EST ,
== END | disposition home or self-care (01) ==
LOC: OPBD 12:18
PROVIDERS: PCP Family Medicine; Referring Provider Internal Medicine Endocrinology, Diabetes & Metabolism; Visit Provider Internal Medicine Endocrinology, Diabetes & Metabolism
DX: M81.0 Age-related osteoporosis without current pathological fracture (principal); E11.9 Type 2 diabetes mellitus without complications
CPT/HCPCS: 77080

== ENCOUNTER → 2024-10-25 | Outpatient (CLI) | payer MEDICARE, OTHER, SELFPAY ==
--- NOTE | 2024-10-25 16:03 | EMB_PTH ---
PATIENT: RADHA CORNELIUS LOC: [facility] U#:[id number] AGE/SX: 69/F ROOM: RE10/25/[address]: Dr. Terri Weinstein MD : 1955 BED: DIS: 10/25/2024 SPEC #: [id number] RECD: 10/26/24 09:01 STATUS: JANICE CAROLE #: [id number] JOSE: 10/25/24 16:[address]: Terri Weinstein DEPT: SURGICAL PATHOLOGY RECD BY: Siva Montoya ENTERED: 10/26/24 09:01 SP TYPE: ENDOM BX/C DON DR: Dr. Nidia Shea MD Tissues: A - Endometrium, NOS Procedures: Surgery Specimen Level IV HEADER OPERATION: Endometrial biopsy PRE-OP DIAGNOSIS: Simple endometrial hyperplasia without atypia TISSUE SUBMITTED: A- Endometrial tissue MICROSCOPIC DIAGNOSIS A. Uterus, endometrial lining, biopsy: * Few strips of benign endometrial and squamous cervical epithelium - see note. Note: Clinical correlation is necessary to assess the adequacy of the sampling. MICROSCOPIC DESCRIPTION Slides are reviewed. GROSS DESCRIPTION A. Received in formalin in a container labeled with the patient's name, date of , and with no further designation is a scant amount of soft tissue admixed with mucus measuring approximately 0.5 x 0.5 x 0.2 cm in aggregate. The specimen is entirely submitted for cellblock preparation in A1. [facility] 10/29/2024 CPT:[id number]
== END | disposition home or self-care (01) ==
LOC: LABSPEC 16:26
PROVIDERS: PCP Family Medicine; Referring Provider Obstetrics & Gynecology; Visit Provider Obstetrics & Gynecology
DX: N71.1 Chronic inflammatory disease of uterus (principal)
CPT/HCPCS: 88305

== ENCOUNTER → 2025-01-24 | Outpatient (CLI) | payer MEDICARE, OTHER, SELFPAY ==
--- NOTE | 2025-01-24 10:00 | BI_ITS ---
EXAM: SCREEN MAMM (CAD) W/DOM UNI R DATE: 01/24/2025 CLINICAL HISTORY: F, Age 70 y/o , SCREENING MAMMOGRAM TECHNIQUE: SCREEN MAMM (CAD) W/DOM UNI R COMPARISON: Prior exam(s) were compared FINDINGS: TISSUE DENSITY: The breasts are heterogeneously dense, which may obscure small masses. Unilateral Right Breast Mammographic Findings: No suspicious masses, calcifications or other abnormalities are identified. BI/SCREEN MAMM (CAD) W/DOM UNI R IMPRESSION: No mammographic evidence of malignancy in the right breast OVERALL FINAL ASSESSMENT BI-RADS 1: NEGATIVE. RECOMMENDATION: Routine annual follow-up in 1 Year A letter with findings and recommendations will be mailed to the patient. Reading Location: [id number]
== END | disposition home or self-care (01) ==
LOC: OPBI 09:48
PROVIDERS: PCP Family Medicine; Referring Provider Obstetrics & Gynecology; Visit Provider Obstetrics & Gynecology
DX: Z12.31 Encounter for screening mammogram for malignant neoplasm of breast (principal)
CPT/HCPCS: 77063; 77067

== ENCOUNTER → 2025-04-27 | Outpatient (CLI) | payer MEDICARE, OTHER, SELFPAY ==
[2025-04-27 11:08] LABS: Creatinine, Urine (random) 63.40 mg/dL (28.00-217.00); Microalbumin,Random Urine < 12.0 mg/L (<20 mg/L)
[2025-04-27 11:12] LABS: AST(SGOT) 23 U/L (<=31); Alanine Aminotransfer ALT/SGPT 16 U/L (<=34); Albumin, Serum 4.1 g/dL (3.4-4.8); Alkaline Phosphatase 84 U/L (35-104); Anion Gap 8 (5-15); BUN 18 mg/dL (4-19); BUN/Creat Ratio 28.4 RATIO (10-20); Calcium,Total 9.4 mg/dL (7.6-11.0); Carbon Dioxide 28.8 mmol/L (21.0-32.0); Chloride 105 mmol/L (98-108); Cholesterol 191 mg/dL (<=200); Globulin 2.8 g/dL (2.2-4.2); Glucose 95 mg/dL (70-99); Low Density Lipoprotein Calc. 95 mg/dL; Potassium 3.9 mmol/L (3.3-5.1); Triglycerides 114 mg/dL; Very Low Density Lipoprotein 23 mg/dL (5-40); Vitamin D,25 Hydroxy 44.0 ng/mL (30-100); cholesterol:hdl ratio screen 2.61
[2025-04-28 04:07] LABS: HEPATITIS B SURFACE AG Negative (Negative); Hep C Antibodies Non Reactive (Non Reactive)
== END | disposition home or self-care (01) ==
LOC: MTLAB 07:33
PROVIDERS: Dermatology Pediatric Dermatology; PCP Family Medicine; Referring Provider Family Medicine; Visit Provider Family Medicine
DX: L66.12 Frontal fibrosing alopecia (principal); E55.9 Vitamin D deficiency, unspecified; M81.0 Age-related osteoporosis without current pathological fracture; R73.01 Impaired fasting glucose
CPT/HCPCS: 36415; 80053; 80061; 80074; 82043; 82306; 82570; 83036

== ENCOUNTER → 2025-05-02 | Outpatient (CLI) | payer MEDICARE, OTHER, SELFPAY ==
--- NOTE | 2025-05-02 10:44 | RAD_ITS ---
PROCEDURE: RIBS UNIL 2V NO CXR 05/02/2025 REASON FOR EXAM: RIB PAIN Chest pain TECHNIQUE: Procedure Code: [id number] Modality: DX Procedure: RIBS UNIL 2V NO CXR two views COMPARISON: None FINDINGS: Findings: The bones are diffusely demineralized. No plain film evidence of acute displaced rib fracture, pleural thickening or pneumothorax. Other: Likely chronic elevation of the left hemidiaphragm Chronic interstitial changes in both lung lomax without a superimposed process RAD/Ribs Unil 2V No CXR IMPRESSION: Osteopenia without plain film evidence of an acute displaced rib fracture, pleu ral thickening or pneumothorax Reading Location: [id number]
== END | disposition home or self-care (01) ==
LOC: MTRAD 10:42
PROVIDERS: PCP Family Medicine; Referring Provider Family Medicine; Visit Provider Family Medicine
DX: R07.89 Other chest pain (principal)
CPT/HCPCS: 71100

== ENCOUNTER → 2025-06-03 | Outpatient (CLI) | payer MEDICARE, OTHER, SELFPAY ==
--- NOTE | 2025-06-03 09:57 | RAD_ITS ---
PROCEDURE: L/S SPINE MIN 4 VIEWS 06/03/2025 REASON FOR EXAM: RIGHT RADICULAR PAIN TECHNIQUE: Procedure Code: [id number] Modality: DX Procedure: L/S SPINE MIN 4 VIEWS COMPARISON: None FINDINGS: Five views of the lumbosacral spine demonstrate bony demineralization of the osseous structures. There are no sacral fractures. SI joints are unremarkable. Mild arthritic changes are seen involving the superior portion of the pubic symphysis that is visualized. There are 5 lumbar-type vertebral bodies below the last set of paired ribs. There is a levoscoliosis of the lumbar spine. The vertebral body heights are within normal limits. There is no spondylolysis. There is approximately 3 mm of anterolisthesis of L5 in relationship to S1. The remaining vertebral bodies demonstrate normal alignment. Mild degenerative disc disease is seen involving all levels. There is some facet hypertrophy of the lower levels. Paravertebral soft tissues are unremarkable. Phleboliths are seen in the pelvis. Very mild osteoarthritic changes are seen involving both hips. RAD/L/S Spine Min 4 Views IMPRESSION: Grade 1 anterolisthesis of L5 in relationship to S1 Mild degenerative disc disease involving the lumbar discs Spondylosis of the lumbar spine. Reading Location: [id number]
== END | disposition home or self-care (01) ==
LOC: MTRAD 09:56
PROVIDERS: PCP Family Medicine; Referring Provider Family Medicine; Visit Provider Family Medicine
DX: M54.10 Radiculopathy, site unspecified (principal)
CPT/HCPCS: 72110